=== PATIENT | male | born 1970 | race American Indian/Alaskan Native ===

== ENCOUNTER 2017-10-27 11:25 | Emergency (ER) | payer MEDICAID ==
--- NOTE | 2017-10-27 12:24 | RAD ---
PROCEDURE: CHEST RADIOGRAPH, 1 VIEW HISTORY: r/o infiltrate COMPARISON: None available. FINDINGS: LUNGS: Clear. PLEURA: No pneumothorax or pleural fluid seen. CARDIOVASCULAR: Normal. OSSEOUS STRUCTURES: No significant abnormalities. VISUALIZED UPPER ABDOMEN: Normal. OTHER FINDINGS: None. IMPRESSION: No active disease.
--- NOTE | 2017-10-27 12:25 | ED PDOC ---
Arrival/HPI - General Chief Complaint: Psychiatric Evaluation Time Seen by Provider: 10/27/17 11:26 EM Caveat: Psychotic (history is diffucult to obtain secondary to flood of ideas ) - History of Present Illness Narrative History of Present Illness (Text): 10/27/17 12:13 46 year old male brought in by EMS presents to the Emergency department because patient was acting strange in public, as per triage note. Patient admits to occasional heroin use. History is difficult to obtain secondary to patient's flood of ideas. Patient states he was with his parents but he is unable to provide a history for events prior to being picked up by EMS. Patient denies suicidal ideation, homicidal ideation, and hallucinations. Patient denies any fever, chills, chest pain, shortness of breath, nausea, vomiting, diarrhea, urinary symptoms, back pain, neck pain, headache, dizziness, trauma/injury, or any other complaints. Time/Duration: Prior to Arrival Symptom Onset: Sudden Symptom Course: Unchanged Activities at Onset: Light Context: Walking Past Medical History - Provider Review Nursing Documentation Reviewed: Yes - Infectious Disease Hx of Infectious Diseases: None - Psychiatric Hx Substance Use: No (unknown) Family/Social History - Physician Review Nursing Documentation Reviewed: Yes Family/Social History: Unknown Family HX Smoking Status: Unknown If Ever Smoked Hx Alcohol Use: No (unknown) Hx Substance Use: No (unknown) Allergies/Home Meds Allergies/Adverse Reactions: Allergies No Known Allergies Allergy (Unverified 10/27/17 12:02) Home Medications: Home Meds Medication Instructions Recorded Confirmed No Known Home Med 10/27/17 10/27/17 Review of Systems - Review of Systems Constitutional: absent: Fevers, Night Sweats Respiratory: absent: SOB Cardiovascular: absent: Chest Pain Gastrointestinal: absent: Diarrhea, Nausea, Vomiting Genitourinary Male: absent: Dysuria Musculoskeletal: absent: Back Pain, Neck Pain Neurological: absent: Headache, Dizziness Psychiatric: absent: Suicidal Ideation Physical Exam Vital Signs Reviewed: Yes Vital Signs Temp Pulse Resp BP Pulse Ox 10/27/17 19:04 88 18 114/63 98 10/27/17 12:13 98.3 F 92 H 17 141/89 99 - Systems Exam Head: Present: Atraumatic, Normocephalic Pupils: Present: PERRL Extroacular Muscles: Present: EOMI Conjunctiva: Present: Normal Mouth: Present: Moist Mucous Membranes Neck: Present: Normal Range of Motion Respiratory/Chest: Present: Clear to Auscultation, Good Air Exchange. No: Respiratory Distress, Accessory Muscle Use Cardiovascular: Present: Regular Rate and Rhythm, Normal S1, S2. No: Murmurs Abdomen: No: Tenderness, Distention, Peritoneal Signs Back: Present: Normal Inspection Upper Extremity: Present: Normal Inspection. No: Cyanosis, Edema Lower Extremity: Present: Other (excoriations noted on lower extremities) Neurological: Present: GCS=15, CN II-XII Intact, Speech Normal Skin: Present: Warm, Dry, Normal Color. No: Rashes Psychiatric: Present: Alert, Oriented x 3, Other (flood of ideas, tangential thoughts) Medical Decision Making ED Course and Treatment: 10/27/17 12:28 Impression: 46 year old male brought in to the Emergency department by EMS because he was "acting strange in public." Plan: -- EKG -- Urinalysis -- Labs -- [facility] Crisis Evaluation -- Reassess and disposition Progress Notes: 10/27/17 13:06 Discussed case in detail with patient's PMD, Dr. Noah Stewart. Patient has a history of behavioral issues, possible bipolar disorder. it is unknown if the patient is currently on any medications. Patient has been medically cleared for psychiatric evaluation. - Lab Interpretations Lab Results: 10/27/17 12:15 10/27/17 12:15 Lab Results 10/27/17 12:45: Urine Opiates Screen Positive H, Urine Methadone Screen Negative , Ur Barbiturates Screen Negative, Ur Phencyclidine Scrn Negative, Ur Amphetamines Screen Negative, U Benzodiazepines Scrn Negative, U Oth Cocaine Metabols Negative, U Cannabinoids Screen Negative 10/27/17 12:45: Urine Color Yellow, Urine Appearance Clear, Urine pH 6.0, Ur Specific [place] <= 1.005, Urine Protein Negative, Urine Glucose (UA) Negative, Urine Ketones Negative, Urine Blood Negative, Urine Nitrate Negative, Urine Bilirubin Negative, Urine Urobilinogen 0.2, Ur Leukocyte Esterase Negative 10/27/17 12:15: Alcohol, Quantitative < 10 10/27/17 12:15: Salicylates < 1 L, Acetaminophen < 10.0 L 10/27/17 12:15: Sodium 141, Potassium 4.4, Chloride 102, Carbon Dioxide 28, Anion Gap 16, BUN 16, Creatinine 1.4, Est GFR ( Amer) > 60, Est GFR (Non- Af Amer) 54, Random Glucose 106, Calcium 9.5, Total Bilirubin 0.4, AST 34, ALT 38, Alkaline Phosphatase 45, Total Protein 8.1, Albumin 4.6, Globulin 3.6, Albumin/Globulin Ratio 1.3 10/27/17 12:15: WBC 7.2, RBC 4.04, Hgb 12.6 L, Hct 37.1 L, MCV 91.8, MCH 31.2, MCHC 34.0, RDW 13.3, Plt Count 319, MPV 10.6, Gran % 66.4, Lymph % (Auto) 22.5, [place] % (Auto) 8.7 H, Eos % (Auto) 1.7, Baso % (Auto) 0.7, Gran # 4.76, Lymph # ( Auto) 1.6, [place] # (Auto) 0.6, Eos # (Auto) 0.1, Baso # (Auto) 0.05 - RAD Interpretation Narrative RAD Interpretations (Text): 10/27/2017 12:22:51 PROCEDURE: CHEST RADIOGRAPH, 1 VIEW FINDINGS: LUNGS: Clear. PLEURA: No pneumothorax or pleural fluid seen. CARDIOVASCULAR: Normal. OSSEOUS STRUCTURES: No significant abnormalities. VISUALIZED UPPER ABDOMEN: Normal. OTHER FINDINGS: None. IMPRESSION: No active disease. Radiology Orders: 10/27/17 12:02 CHEST ONE VIEW [RAD] Stat - EKG Interpretation EKG Interpretation (Text): 10/27/17 11:50 EKG: Ordered, reviewed, and independently interpreted the EKG. Rate : 68 BPM Rhythm : NSR Interpretation : No ST-segment elevations or depressions, no T-wave inversions, normal intervals. Interpreted by ED Physician: Yes Type: 12 lead EKG - Medication Orders Current Medication Orders: Discontinued Medications Famotidine (Pepcid) 20 mg PO STAT STA Stop: 10/27/17 22:23 Last Admin: 10/27/17 22:34 Dose: 20 mg Lorazepam (Ativan) 2 mg IM STAT STA PRN Reason: Protocol Stop: 10/27/17 13:23 Last Admin: 10/27/17 19:55 Dose: Not Given Non-Admin Reason: Patient Refused Nicotine (Nicoderm Cq) 1 patch TD STAT STA Stop: 10/27/17 19:30 Last Admin: 10/27/17 19:30 Dose: Not Given Non-Admin Reason: Patient Refused - Transfer of Care Patient signed out to Dr:: Monroe Other: [facility] [place] - Scribe Statement The provider has reviewed the documentation as recorded by the Scribe Roddy Henriquez All medical record entries made by the Scribe were at my direction and personally dictated by me. I have reviewed the chart and agree that the record accurately reflects my personal performance of the history, physical exam, medical decision making, and the department course for this patient. I have also personally directed, reviewed, and agree with the discharge instructions and disposition. Disposition/Present on Arrival - Present on Arrival Any Indicators Present on Arrival: No History of DVT/PE: No History of Uncontrolled Diabetes: No Urinary Catheter: No History of Decub. Ulcer: No History Surgical Site Infection Following: None - Disposition Have Diagnosis and Disposition been Completed?: No Diagnosis: Drug abuse Disposition Time: 23:00 Condition: UNKNOWN Forms: [employer] (Slovak)
[2017-10-27 12:30] VITALS: TEMP 98.3
[2017-10-27 12:39] LABS: BASO # 0.05 K/mm3 (0.0-2.0); BASO % 0.7 % (0.0-3.0); EOS # 0.1 (0.0-0.7); EOS % 1.7 % (1.5-5.0); GRAN # 4.76 (1.4-6.5); GRAN % 66.4 % (50.0-68.0); HEMOGLOBIN 12.6 g/dL (14.0-18.0); LYMPH # 1.6 (1.2-3.4); LYMPH % 22.5 % (22.0-35.0); MEAN CELL VOLUME 91.8 fl (80.0-105.0); MEAN CORPUSCULAR HEMOGLOBIN 31.2 pg (25.0-35.0); MEAN PLATELET VOLUME 10.6 fl (7.0-11.0); MONO # 0.6 (0.1-0.6); MONO % 8.7 % (1.0-6.0); RBC 4.04 10^6/uL (3.5-6.1); RED CELL DISTRIBUTION WIDTH 13.3 % (11.5-14.5); WHITE BLOOD COUNT 7.2 10^3/ul (4.5-11.0)
[2017-10-27 12:49] LABS: ALB/GLOB RATIO 1.3 (1.1-1.8); ALBUMIN 4.6 g/dL (3.0-4.8); ALT/SGPT 38 U/L (7-56); AST/SGOT 34 U/L (17-59); BLOOD UREA NITROGEN 16 mg/dL (7-21); CALCIUM 9.5 mg/dL (8.4-10.5); GFR AFRICAN-AMERICAN > 60; GFR NON-AFRICAN AMERICAN 54
[2017-10-27 12:50] LABS: ACETAMINOPHEN < 10.0 ug/ml (10.0-20.0); SALICYLATE < 1 mg/dL (2.0-20.0)
[2017-10-27 13:00] LABS: URINE BILIRUBIN NEGATIVE (NEGATIVE); URINE BLOOD NEGATIVE (NEGATIVE); URINE GLUCOSE (UA) NEGATIVE (NEGATIVE); URINE LEUKOCYTE ESTERASE NEGATIVE Leu/uL (NEGATIVE); URINE PROTEIN NEGATIVE mg/dL (<30 mg/dL); URINE UROBILINOGEN 0.2 E.U./dL (<1 E.U./dL)
[2017-10-27 13:02] LABS: URINE APPEARANCE CLEAR (CLEAR); URINE COLOR YELLOW (YELLOW)
[2017-10-27 13:43] LABS: PHENCYCLIDINE, UR NEGATIVE (NEGATIVE)
[2017-10-27 13:46] LABS: BARBITURATES, UR NEGATIVE (NEGATIVE); BENZODIAZEPINES, UR NEGATIVE (NEGATIVE); OPIATES, UR POSITIVE (NEGATIVE)
--- NOTE | 2017-10-27 16:30 | CARD ---
APPROVED REPORT EKG Measurement Heart [id number] <Conclusion> Normal sinus rhythm Possible Left atrial enlargement Borderline ECG
[2017-10-27 19:05] VITALS: RESP 18
--- NOTE | 2017-10-27 23:29 | ED PDOC ---
Physical Exam Vital Signs Reviewed: Yes Vital Signs Temp Pulse Resp BP Pulse Ox 10/27/17 19:04 88 18 114/63 98 10/27/17 12:13 98.3 F 92 H 17 141/89 99 Temperature: Afebrile Blood Pressure: Normal Pulse: Tachycardic Respiratory Rate: Normal Appearance: Positive for: Well-Appearing, Non-Toxic, Comfortable Pain Distress: None Mental Status: Positive for: Alert and Oriented X 3 Medical Decision Making ED Course and Treatment: 10/27/17 23:28: Case endorsed to me by Dr. Sandoval. Patient pending [facility] [place], reassessment, and disposition. 10/28/17 01:34: Patient evaluated by [facility] screener. Patient is stable to be discharged home. - Lab Interpretations Lab Results: 10/27/17 12:15 10/27/17 12:15 Lab Results 10/27/17 12:45: Urine Opiates Screen Positive H, Urine Methadone Screen Negative , Ur Barbiturates Screen Negative, Ur Phencyclidine Scrn Negative, Ur Amphetamines Screen Negative, U Benzodiazepines Scrn Negative, U Oth Cocaine Metabols Negative, U Cannabinoids Screen Negative 10/27/17 12:45: Urine Color Yellow, Urine Appearance Clear, Urine pH 6.0, Ur Specific [place] <= 1.005, Urine Protein Negative, Urine Glucose (UA) Negative, Urine Ketones Negative, Urine Blood Negative, Urine Nitrate Negative, Urine Bilirubin Negative, Urine Urobilinogen 0.2, Ur Leukocyte Esterase Negative 10/27/17 12:15: Alcohol, Quantitative < 10 10/27/17 12:15: Salicylates < 1 L, Acetaminophen < 10.0 L 10/27/17 12:15: Sodium 141, Potassium 4.4, Chloride 102, Carbon Dioxide 28, Anion Gap 16, BUN 16, Creatinine 1.4, Est GFR ( Amer) > 60, Est GFR (Non- Af Amer) 54, Random Glucose 106, Calcium 9.5, Total Bilirubin 0.4, AST 34, ALT 38, Alkaline Phosphatase 45, Total Protein 8.1, Albumin 4.6, Globulin 3.6, Albumin/Globulin Ratio 1.3 10/27/17 12:15: WBC 7.2, RBC 4.04, Hgb 12.6 L, Hct 37.1 L, MCV 91.8, MCH 31.2, MCHC 34.0, RDW 13.3, Plt Count 319, MPV 10.6, Gran % 66.4, Lymph % (Auto) 22.5, [place] % (Auto) 8.7 H, Eos % (Auto) 1.7, Baso % (Auto) 0.7, Gran # 4.76, Lymph # ( Auto) 1.6, [place] # (Auto) 0.6, Eos # (Auto) 0.1, Baso # (Auto) 0.05 - RAD Interpretation Radiology Orders: 10/27/17 12:02 CHEST ONE VIEW [RAD] Stat - Medication Orders Current Medication Orders: Discontinued Medications Famotidine (Pepcid) 20 mg PO STAT STA Stop: 10/27/17 22:23 Last Admin: 10/27/17 22:34 Dose: 20 mg Lorazepam (Ativan) 2 mg IM STAT STA PRN Reason: Protocol Stop: 10/27/17 13:23 Last Admin: 10/27/17 19:55 Dose: Not Given Non-Admin Reason: Patient Refused Nicotine (Nicoderm Cq) 1 patch TD STAT STA Stop: 10/27/17 19:30 Last Admin: 10/27/17 19:30 Dose: Not Given Non-Admin Reason: Patient Refused - Scribe Statement The provider has reviewed the documentation as recorded by the Scribe Phyllis Andersen Provider Scribe Attestation: All medical record entries made by the Scribe were at my direction and personally dictated by me. I have reviewed the chart and agree that the record accurately reflects my personal performance of the history, physical exam, medical decision making, and the department course for this patient. I have also personally directed, reviewed, and agree with the discharge instructions and disposition. Disposition/Present on Arrival - Present on Arrival Any Indicators Present on Arrival: No History of DVT/PE: No History of Uncontrolled Diabetes: No Urinary Catheter: No History of Decub. Ulcer: No History Surgical Site Infection Following: None - Disposition Have Diagnosis and Disposition been Completed?: Yes Diagnosis: Drug abuse Disposition: HOME/ ROUTINE Disposition Time: 01:25 Condition: GOOD Discharge Instructions (ExitCare): Drug Abuse and Drug Addiction (DC) Forms: [employer] (Turkmen)
[2017-10-28 03:30] VITALS: BP 130/80; PULSE 92; O2SAT 100
== END 2017-10-28 02:10 | disposition home or self-care (01) ==
LOC: ED 11:25
DX: F19.10 Other psychoactive substance abuse, uncomplicated (principal)

== ENCOUNTER 2017-12-20 21:47 | Inpatient (IN) | payer MEDICAID ==
[2017-12-20 22:01] VITALS: BMI 24.3
[2017-12-20 22:24] VITALS: O2SAT 97
--- NOTE | 2017-12-20 22:27 | ED PDOC ---
Arrival/HPI - General Chief Complaint: Psychiatric Evaluation Time Seen by Provider: 12/20/17 21:59 Historian: Patient - History of Present Illness Narrative History of Present Illness (Text): 12/20/17 22:25 27-year-old male presents as psychiatric transfer for admission to behavioral health floor for depression. Patient states he was feeling depressed. Denies chest pain or shortness of breath. Denies abdominal pain. No nausea or vomiting. Past Medical History - Provider Review Nursing Documentation Reviewed: Yes - Travel History Have you recently traveled outside [place] w/in the past 3 mons?: No - Infectious Disease Hx of Infectious Diseases: None - Cardiac Hx Cardiac Disorders: No Hx Hypertension: No - Pulmonary Hx Tuberculosis: No - Neurological HX Cerebrovascular Accident: No Hx Seizures: No - Hematological/Oncological Hx Cancer: No - Gastrointestinal Hx Gastroesophageal Reflux: Yes - Genitourinary/Gynecological Hx Sexually Transmitted Diseases: Yes (herpes) - Psychiatric Hx Depression: Yes Hx Substance Use: Yes (heroin abuse) - Anesthesia Hx Anesthesia: No Family/Social History - Physician Review Nursing Documentation Reviewed: Yes Family/Social History: Unknown Family HX Smoking Status: Unknown If Ever Smoked Hx Alcohol Use: No (unknown) Hx Substance Use: Yes (heroin abuse) Allergies/Home Meds Allergies/Adverse Reactions: Allergies lactose Allergy (Verified 12/20/17 22:03) DIARRHEA Home Medications: Home Meds Medication Instructions Recorded Confirmed No Known Home Med 10/27/17 10/27/17 Review of Systems - Review of Systems Constitutional: absent: Fatigue, Fevers Respiratory: absent: SOB, Cough Cardiovascular: absent: Chest Pain, Palpitations Gastrointestinal: absent: Abdominal Pain, Nausea, Vomiting Genitourinary Male: absent: Dysuria Musculoskeletal: absent: Arthralgias, Back Pain, Neck Pain Neurological: absent: Headache, Dizziness Endocrine: absent: Diaphoresis Psychiatric: Depression. absent: Anxiety Physical Exam Vital Signs Reviewed: Yes Vital Signs Temp Pulse Resp BP Pulse Ox 12/20/17 22:23 100.3 F H 64 18 150/90 97 Temperature: Afebrile Blood Pressure: Normal Pulse: Regular Respiratory Rate: Normal Appearance: Positive for: Well-Appearing, Non-Toxic, Comfortable Pain Distress: None Mental Status: Positive for: Alert and Oriented X 3 - Systems Exam Head: Present: Atraumatic Mouth: Present: Moist Mucous Membranes Respiratory/Chest: Present: Clear to Auscultation Cardiovascular: Present: Regular Rate and Rhythm Abdomen: No: Tenderness Medical Decision Making ED Course and Treatment: 12/20/17 22:26 47yr old male with depression. transferred to [facility] [place] for admission for depression. pt was medically cleared prior to arrival. cbc; wbc; 4.7 hbg; 10.7 cmp; wnl uds; + cocaine and opiates impression; depression admit to behavioral health floor Disposition/Present on Arrival - Present on Arrival Any Indicators Present on Arrival: No History of DVT/PE: No History of Uncontrolled Diabetes: No Urinary Catheter: No History of Decub. Ulcer: No History Surgical Site Infection Following: None - Disposition Have Diagnosis and Disposition been Completed?: Yes Diagnosis: Depression Disposition: HOSPITALIZED Disposition Time: 22:27 Patient Plan: Admission Condition: FAIR
[2017-12-20] MEDS ORDERED: Magnesium Hydroxide Susp 30 ml UD PO PRN (22:55)
[2017-12-20] MEDS ORDERED: Alum-Mag Hydrox-Simethicone Susp (30 mL) PO PRN (22:55)
--- NOTE | 2017-12-21 01:24 | PCM.BM ---
Treatment Plan Problems - Problems identified on initial assessmt SUICIDAL IDEATION Date Initiated: 12/20/17 Time Initiated: 22:00 Assessment reference: NA Status: Active Priority: 1 INEFFECTIVE COPING Date Initiated: 12/20/17 Time Initiated: 22:00 Assessment reference: NA Status: Active Priority: 2 HOPELESSNESS/HELPLESSNESS Date Initiated: 12/20/17 Time Initiated: 22:00 Assessment reference: NA Status: Active Priority: 3 ALTERED SLEEPING PATTERN Date Initiated: 12/20/17 Time Initiated: 22:00 Assessment reference: NA Priority: 4 Treatment assets and liabiliti Patient Assests: adapts well, cooperative, educated, insightful, self-reliant, ADL independent, physically healthy, negotiates basic needs, cognitively intact Patient Liabilities: physical pain, financial problems, substance abuse - Milieu Protocol Maintain good personal hygiene: every other day Encourage regular showers, every shift Remind patient to perform daily oral care, every shift Assist patient to perform ADL's Maintain personal safety: every shift Educate patient to report safety concerns to staff, every shift Monitor environment for contraband/sharps Medication safety: Monitor for expected outcome, potential side effects: every shift, Assess barriers to learning: every shift, Assess readiness for medication education: every shift Family Contact Family involvement: Family/SO is involved Family contact: Patient agrees to contact Discharge/Continuing Care - Education Needs Education Needs: Patient Medication, Patient Diagnosis/Disease Process, Patient Coping Skills, Patient Pain - Discharge Discharge Criteria: Tolerates medication w/o severe side effects, Free of Suicidal thoughts, Free of agitation, Normal sleep pattern
[2017-12-21 07:01] VITALS: RESP 20
[2017-12-21 08:09] LABS: GLUCOSE,FASTING 88 mg/dL (65-110); HDL CHOLESTEROL 53 mg/dL (29-60)
[2017-12-21 08:20] LABS: LDL CHOLESTEROL 82 mg/dL (0-129)
--- NOTE | 2017-12-21 10:54 | RAD ---
Date of service: 12/21/2017 HISTORY: R/O pneumonia COMPARISON: 10/27/2017 TECHNIQUE: Chest PA and lateral FINDINGS: LUNGS: No active pulmonary disease. PLEURA: No significant pleural effusion identified. No pneumothorax apparent. CARDIOVASCULAR: Normal. OSSEOUS STRUCTURES: No significant abnormalities. VISUALIZED UPPER ABDOMEN: Normal. OTHER FINDINGS: None. IMPRESSION: No active disease.
--- NOTE | 2017-12-21 14:21 | CP.PCM.CON ---
<Conner Wise - Last Filed: 12/21/17 15:01> History of Present Illness - History of Present Illness History of Present Illness: Reason for consult: Open wound on left foot Mr. Renee is a 47 yo male with a PMH of herpes on valcyclovir and doxycycline presents as psychiatric transfer from [facility] for admission to behavioral health for depression and suicidal ideation. Medicine was consulted to evaluate an open wound on his left foot. Patient states that he has had the wound for 3 weeks. It started off as a blister and it became worse overtime. He states that the pain is worse when he is walking and putting pressure on the wound. Patient otherwise denies fever, chills, headaches, nausea, vomiting, chest pain, SOB, or abdominal pain. 12 point review of systems negative. Past medical history: Herpes Medications: Acyclovir and doxycycline, not on any other home medications Surgical history: denies Allergies: lactose intolerance Social history: Smoker- 20 pack years, Heroin- snort, last use was this week, denies ealcohol use Family history: Father had a history of CVA, mother had brain cancer. Review of Systems - Review of Systems Review of Systems: 12 point review of systems negative. Past Patient History - Infectious Disease Hx of Infectious Diseases: None - Past Social History Smoking Status: Unknown If Ever Smoked - CARDIAC Hx Cardiac Disorders: No Hx Hypertension: No - PULMONARY Hx Tuberculosis: No - NEUROLOGICAL HX Cerebrovascular Accident: No Hx Seizures: No - HEENT Hx HEENT Problems: No - RENAL Hx Chronic Kidney Disease: No - ENDOCRINE/METABOLIC Hx Endocrine Disorders: No - HEMATOLOGICAL/ONCOLOGICAL Hx Cancer: No - INTEGUMENTARY Hx Dermatological Problems: Yes Other/Comment: recent Herpes outbreak - MUSCULOSKELETAL/RHEUMATOLOGICAL Hx Musculoskeletal Disorders: No - GASTROINTESTINAL Hx Gastroesophageal Reflux: Yes - GENITOURINARY/GYNECOLOGICAL Hx Sexually Transmitted Disorders: Yes (herpes) - PSYCHIATRIC Hx Depression: Yes Hx Substance Use: Yes (heroin abuse) - SURGICAL HISTORY Hx Surgeries: No - ANESTHESIA Hx Anesthesia: No Meds Allergies/Adverse Reactions: Allergies Allergy/AdvReac Type Severity Reaction Status Date / Time lactose Allergy DIARRHEA Verified 12/21/17 01:07 - Medications Medications: Current Medications Acetaminophen (Tylenol 325mg Tab) 650 mg PO Q4H PRN PRN Reason: Pain, Mild (1-3) Al Hydrox/Mg Hydrox/Simethicone (Maalox Plus 30 Ml) 30 ml PO DAILY PRN PRN Reason: Upset Stomach Fluoxetine HCl (Prozac) 20 mg PO DAILY [facility] Last Admin: 12/21/17 08:01 Dose: 20 mg Hydroxyzine Pamoate (Vistaril) 50 mg PO Q6 PRN; Protocol PRN Reason: Anxiety Lorazepam (Ativan) 2 mg PO Q6H PRN; Protocol PRN Reason: Agitation Lorazepam (Ativan) 2 mg IM Q6H PRN; Protocol PRN Reason: Agitation Magnesium Hydroxide (Milk Of Magnesia) 30 ml PO DAILY PRN PRN Reason: Constipation Mirtazapine (Remeron) 15 mg PO HS ALEKSANDAR Ondansetron HCl (Zofran Odt) 4 mg PO Q8H PRN PRN Reason: Nausea/Vomiting Tramadol HCl (Ultram) 50 mg PO Q8H PRN PRN Reason: Pain, moderate (4-7) Ziprasidone (Geodon Cap) 20 mg PO Q6H PRN; Protocol PRN Reason: Agitation Ziprasidone (Geodon Inj) 20 mg IM Q6H PRN; Protocol PRN Reason: Agitation Physical Exam - Head Exam Head Exam: ATRAUMATIC, NORMAL INSPECTION - Eye Exam Eye Exam: Normal appearance - ENT Exam ENT Exam: Mucous Membranes Moist - Cardiovascular Exam Cardiovascular Exam: REGULAR RHYTHM. absent: Gallop, Rubs, +S1, +S2, Systolic Murmur - GI/Abdominal Exam GI & Abdominal Exam: Normal Bowel Sounds, Soft. absent: Tenderness - Extremities Exam Extremities exam: Negative for: calf tenderness, pedal edema - Neurological Exam Neurological exam: Alert, Normal Gait, Oriented x3 - Psychiatric Exam Psychiatric exam: Flat Affect - Skin Skin Exam: Dry, Normal Color, Warm Additional comments: Open sore that looks superficial on the plantar side below the first metatarsal measuring 3-4 cm. No active bleeding and not purulent. Dark, flat, macular lesions found along legs and arms. Results - Vital Signs Recent Vital Signs: Last Vital Signs Temp 98.2 F 12/21/17 07:00 Pulse 55 L 12/21/17 07:00 Resp 20 12/21/17 07:00 BP 128/90 12/21/17 07:00 Pulse Ox 97 12/20/17 22:53 - Labs Labs: Laboratory Results - last 24 hr 07/12/21/17 12/21/17 06:39 07:30 07:30 Fasting Glucose 88 Triglycerides 72 Cholesterol 170 LDL Cholesterol Direct 82 HDL Cholesterol 53 Procalcitonin < 0.05 L TSH 3rd Generation 1.60 Assessment & Plan - Assessment and Plan (Free Text) Assessment: Mr. Renee is a 47 yo male with PMH of herpes that is admitted to behavioral unit for depression and suicidal ideation. Medicine was consulted to evaluate an open wound on the plantar surface of the left foot below the 1st metatarsal. Plan: Open wound on left foot - need to rule out infectious etiologies vs diabetic ulcer - ID consulted, will monitor without antibiotics for now - procalcitonin <0.05 - wound culture pending - Hemoglobin a1c pending - HIV test pending - Hepatitis panel pending - UA pending Suicidal Ideation and depression - Patient is currently placed on voluntary hold in-patient psych - Management per psych Patient case reviewed with and plan approved by attending physician, Dr. Leach. Thank you for allowing me to participate in the care of the above named patient. <Meliza Leach R - Last Filed: 12/21/17 16:53> Meds - Medications Medications: Current Medications Acetaminophen (Tylenol 325mg Tab) 650 mg PO Q4H PRN PRN Reason: Pain, Mild (1-3) Last Admin: 12/21/17 14:16 Dose: 650 mg Al Hydrox/Mg Hydrox/Simethicone (Maalox Plus 30 Ml) 30 ml PO DAILY PRN PRN Reason: Upset Stomach Fluoxetine HCl (Prozac) 20 mg PO DAILY ALEKSANDAR Last Admin: 12/21/17 08:01 Dose: 20 mg Hydroxyzine Pamoate (Vistaril) 50 mg PO Q6 PRN; Protocol PRN Reason: Anxiety Lorazepam (Ativan) 2 mg PO Q6H PRN; Protocol PRN Reason: Agitation Lorazepam (Ativan) 2 mg IM Q6H PRN; Protocol PRN Reason: Agitation Magnesium Hydroxide (Milk Of Magnesia) 30 ml PO DAILY PRN PRN Reason: Constipation Mirtazapine (Remeron) 15 mg PO HS ALEKSANDAR Ondansetron HCl (Zofran Odt) 4 mg PO Q8H PRN PRN Reason: Nausea/Vomiting Tramadol HCl (Ultram) 50 mg PO Q8H PRN PRN Reason: Pain, moderate (4-7) Ziprasidone (Geodon Cap) 20 mg PO Q6H PRN; Protocol PRN Reason: Agitation Ziprasidone (Geodon Inj) 20 mg IM Q6H PRN; Protocol PRN Reason: Agitation Results - Vital Signs Recent Vital Signs: Last Vital Signs Temp 98.2 F 12/21/17 07:00 Pulse 55 L 12/21/17 07:00 Resp 20 12/21/17 07:00 BP 128/90 12/21/17 07:00 Pulse Ox 97 12/20/17 22:53 - Labs Labs: Laboratory Results - last 24 hr 12/21/17 12/21/17 12/21/17 06:39 07:30 07:30 Fasting Glucose 88 Triglycerides 72 Cholesterol 170 LDL Cholesterol Direct 82 HDL Cholesterol 53 Procalcitonin < 0.05 L TSH 3rd Generation 1.60 Attending/Attestation - Attestation I have personally seen and examined this patient.: Yes I have fully participated in the care of the patient.: Yes I have reviewed all pertinent clinical information: Yes Notes (Text): Patient seen and examined by me at 12:30PM with resident. Case including HPI, physical exam, and physical assessment and plan discussed with resident. Agree with above with following additions/corrections. Patient is a 47-year-old male with past medical history significant for herpes that was admitted to psychiatric unit for making suicidal comments to his friend. We are consulted for low-grade fever and small open wound on plantar surface of left foot. Patient states that the open wound on the plantar side of his left foot has been there for approximately 3 weeks. He states that he gets wounds like this often. States that they started off like a blister and they may turn into wounds and take a long time to heal. Patient has not tried anything for this wound. Patient was transfered from [facility]. Patient states his wound was wrapped at [facility]. Patient states that he did see his primary care doctor as an outpatient for this. Patient states it is painful and is worse with walking. No radiation of the pain. Patient denies any fevers. However patient was found to have low grade temp of 100.3. No chest pain or shortness of breath. No nausea, vomiting, or abdominal pain. No headaches or dizziness. No dysuria. No neck pain or back pain. 14 point review of systems reviewed by me. See above HPI. All other review of systems negative. Physical exam: Gen: Awake and alert sitting up in bed in no acute distress HEENT: Normocephalic atraumatic. Extraocular muscles intact, pupils equal reactive. No scleral icterus. Oropharynx is pink and moist, no pharyngeal erythema or exudate appreciated. Neck is supple. Hearing grossly intact. Ears and nose externally unremarkable. Cardiovascular: Normal rhythm, normal S1-S2. No murmurs, rubs, or gallops appreciated Pulmonary: Normal respiratory effort. No rhonchi, rales or wheezing appreciated. Gastrointestinal: Soft, nontender, nondistended, positive bowel sounds all 4 quadrants, no guarding Musculoskeletal: Normal range of motion all extremities, no calf tenderness, no CVA tenderness Central nervous system: AAO 3. Cranial nerves 2 through 12 grossly intact. 5 out of 5 muscle strength all extremities. Sensation intact. Dermatologic: Skin warm and dry. Positive healed dark scar around wounds on Lasix and arms. Positive proximately 2 cm superficial open wound on plantar surface, no drainage from the area, no erythema, no signs of infection Assessment and plan: Patient is a 47-year-old male with past medical history significant for herpes that was admitted to psychiatric unit for making suicidal comments to his friend. We are consulted for low-grade fever and small open wound on plantar surface of left foot. 1. Left foot wound. Low-grade temperature. ID following, recommendations noted. Patient to be observed off antibiotics for now. Rule out other sources of infection. Rule out UTI. Follow up urinalysis, urine culture, and labs. Chest x- ray with no active disease 2. Suicidal ideation and depression. Care as per primary team. 3. History of herpes. No active outbreak currently. Case was discussed in detail with the patient, psychiatrist, and medical pathology teacher regarding current diagnosis and treatment plan. Thank you for allowing us to participate in the care of your patient. We will follow with you.
--- NOTE | 2017-12-21 14:36 | PCM.PSYCH ---
<Venus Marcus - Last Filed: 12/21/17 14:38> Initial Psychiatric Evaluation - Initial Psychiatric Evaluation Type of Admission: Voluntary Legal Status: Capacity Chief Complaint (in patient's own words): I just keep getting frustrated with everything irene on at home with my dad. I dont really care about myself. Im here to get better for them. Patient's Reaction to Hospitalization: Patient was admitted to the psych unit for evaluation and stabilization after making suicidal statements to a friend. History of Present Illness and Precipitating Events: Nick Renee is a 47 yo male with a hx of depression and heroin use who was sent as a transfer from [facility] for making suicidal statements. The patient lives with his parents, who he takes care of. He reports becoming increasingly frustrated with his father because he as many needs after having a stroke last year. The patient expressed suicidal ideation to his friend who suggested he get help. The patient then brought himself to [facility] ED. According to medical records, in the ED, he endorsed SI and depression. He also admitted to snorting heroin 2 days prior. He states he brought himself to the hospital instead of attempting suicide because he cares about his parents and wants to get better for them. The patient reports being depressed for awhile. He admits to one suicide attempt a long time ago by OD on pills. He reports being hospitalized for weeks after this attempt. He endorses low mood, poor sleep and appetite, and anhedonia. He appears to be future-oriented regarding caring for his parents; however, when asked what his future plans are, he replies, I cant even see tomorrow right now. Patient endorses irritability but denies other symptoms of sayda, including lack of need for sleep, grandiosity, pressured speech. He endorses anxiety regarding hi home life, but denies panic attacks or obsessions or compulsions. He denies paranoia, delusions, and hallucinations. He endorses heroin use intranasally. He denies alcohol or other drugs, including IVDA. Patient denies history of trauma or abuse. Patient was previously hospitalized at [facility]. He also has been in rehab programs. The patient denies taking any psych meds now and does not see an outpatient psychiatrist. He states that the only time he took psych meds was while he was in [facility]. According to medical records, he was seen by PES at [facility] in September for bizarre behavior and heroin use- he was discharged from the ED. He was then seen at [facility] ED in 10/21 after being brought in by police fro bizarre behavior/agitation. Collateral was obtained from his mother at that time, and, according to PES worker, she stated that he makes suicidal statements when using drugs. The patient was seen this morning in tx team. He was dressed in casual clothing with acceptable hygiene. He was cooperative and calm with fair eye contact. He denied AVH, paranoia. He denied HI. Patient denied SI with a plan at this time and was able to contract for safety. Past psych hx: [facility] inpatient IOP 2014 Rehab for opioid abuse PMH: Active herpes infection- genital/anal, ?hands ?cardiomegaly FH: Father- CVA Mother- poor physical health No siblings or children Denies h/o mental illness or suicide attempts SH: Lives with parents Never , no children Heroin intranasal- amount/frequency varies, last used 5 days ago 10 cigarettes/day Denies alcohol use Denies other illicit drug use, including IVDA Current Medications: Active Medications Generic Name Dose Route Start Last Admin Trade Name Freq PRN Reason Stop Dose Admin Acetaminophen 650 mg 12/20/17 22:55 Tylenol 325mg Tab PO Q4H PRN Pain, Mild (1-3) Al Hydrox/Mg Hydrox/Simethicone 30 ml 12/20/17 22:55 Maalox Plus 30 Ml PO DAILY PRN Upset Stomach Fluoxetine HCl 20 mg 12/21/17 08:00 12/21/17 08:01 Prozac PO 20 mg DAILY ALEKSANDAR Administration Hydroxyzine Pamoate 50 mg 12/21/17 00:58 Vistaril PO Q6 PRN Anxiety Protocol Lorazepam 2 mg 12/21/17 00:56 Ativan PO Q6H PRN Agitation Protocol Lorazepam 2 mg 12/21/17 00:57 Ativan IM Q6H PRN Agitation Protocol Magnesium Hydroxide 30 ml 12/20/17 22:55 Milk Of Magnesia PO DAILY PRN Constipation Mirtazapine 15 mg 12/21/17 22:00 Remeron PO HS ALEKSANDAR Ondansetron HCl 4 mg 12/21/17 00:58 Zofran Odt PO Q8H PRN Nausea/Vomiting Tramadol HCl 50 mg 12/21/17 00:58 Ultram PO Q8H PRN Pain, moderate (4-7) Ziprasidone 20 mg 12/21/17 00:56 Geodon Cap PO Q6H PRN Agitation Protocol Ziprasidone 20 mg 12/21/17 00:57 Geodon Inj IM Q6H PRN Agitation Protocol Past Psychiatric History - Past Psychiatric History Pertinent Medical Hx (Current Medical&Sleep Prob, Allergies): Allergies Allergy/AdvReac Type Severity Reaction Status Date / Time lactose Allergy DIARRHEA Verified 12/21/17 01:07 Acyclovir/Hydrocortisone [Xerese 5%-1%] 1 cre TP BID 12/21/17 <Jimena Castillo - Last Filed: 12/21/17 15:18> Initial Psychiatric Evaluation - Initial Psychiatric Evaluation Legal Status: Capacity (patient has capacity to sign consent for treatment) History of Present Illness and Precipitating Events: patient was seen at the treatment team meeting, interviewed, discussed with staff Notes reviewed and agreed with assessment and plan Patient has acceptable personal hygiene, good ADLs. Patient presented to be depressed, flat affect, very slow responses, yes no answers, patient Was making hopeless statements. in regards of the past psychiatric history, patient reported that he overdosed on pills at the age of 18 and was in [facility] psychiatric inpatient unit for a couple of weeks, patient does not remember what medications he was taking, does not rememberif medications make him feel better. patient was seen by infectious disease, patient is NOT required to be on contact isolation Patient reported that he snorts opioids,last time was last Tuesday, patient reports smokes about 10 cigarettes a day, counseling provided, nicotine patch was offered, patient declined that offer Current Medications: Active Medications Generic Name Dose Route Start Last Admin Trade Name Freq PRN Reason Stop Dose Admin Acetaminophen 650 mg 12/20/17 22:55 12/21/17 14:16 Tylenol 325mg Tab PO 650 mg Q4H PRN Administration Pain, Mild (1-3) Al Hydrox/Mg Hydrox/Simethicone 30 ml 12/20/17 22:55 Maalox Plus 30 Ml PO DAILY PRN Upset Stomach Fluoxetine HCl 20 mg 12/21/17 08:00 12/21/17 08:01 Prozac PO 20 mg DAILY ALEKSANDAR Administration Hydroxyzine Pamoate 50 mg 12/21/17 00:58 Vistaril PO Q6 PRN Anxiety Protocol Lorazepam 2 mg 12/21/17 00:56 Ativan PO Q6H PRN Agitation Protocol Lorazepam 2 mg 12/21/17 00:57 Ativan IM Q6H PRN Agitation Protocol Magnesium Hydroxide 30 ml 12/20/17 22:55 Milk Of Magnesia PO DAILY PRN Constipation Mirtazapine 15 mg 12/21/17 22:00 Remeron PO HS ALEKSANDAR Ondansetron HCl 4 mg 12/21/17 00:58 Zofran Odt PO Q8H PRN Nausea/Vomiting Tramadol HCl 50 mg 12/21/17 00:58 Ultram PO Q8H PRN Pain, moderate (4-7) Ziprasidone 20 mg 12/21/17 00:56 Geodon Cap PO Q6H PRN Agitation Protocol Ziprasidone 20 mg 12/21/17 00:57 Geodon Inj IM Q6H PRN Agitation Protocol Past Psychiatric History - Past Psychiatric History Previous Treatment History: Inpatient Prior Professional Help: See HPI Prior Psychiatric Treatment: see HPI At what hospital: see HPI Duration: see HPI Nature of Treatment: see HPI Explanation of prior treatment: see HPI History of Abuse: see HPI History of ETOH/Drug Use: see HPI History of Family Illness: see HPI Pertinent Medical Hx (Current Medical&Sleep Prob, Allergies): Allergies Allergy/AdvReac Type Severity Reaction Status Date / Time lactose Allergy DIARRHEA Verified 12/21/17 01:07 Acyclovir/Hydrocortisone [Xerese 5%-1%] 1 cre TP BID 12/21/17 Review of Systems - Review of Systems Systems not reviewed;Unavailable: Acuity of Condition - EENT Eyes: As Per HPI Ears: As Per HPI Nose/Mouth/Throat: As Per HPI - Cardiovascular Cardiovascular: As Per HPI - Respiratory Respiratory: As Per HPI - Gastrointestinal Gastrointestinal: As Per HPI - Genitourinary Genitourinary: As Per HPI - Reproductive: Male Reproductive:Male: As Per HPI - Musculoskeletal Musculoskeletal: As Par HPI - Integumentary Integumentary: As Per HPI - Neurological Neurological: As Per HPI - Psychiatric Psychiatric: As Per HPI - Endocrine Endocrine: As Per HPI - Hematologic/Lymphatic Hematologic: As Per HPI Mental Status Examination - Personal Presentation Personal Presentation: Looks older than stated age - Affect Affect: Flat - Motor Activity Motor Activity: Psychomotor Retardation - Reliability in Providing Information Reliability in Providing Information: Fair - Speech Speech: Organized - Mood Mood: Depressed - Formal Thought Process Formal Thought Process: No Impairment, Paranoia - Hallucinations/Delusions Delusions: Persecution - Obsessions/Compulsions Obsessions: None Compulsions: None - Cognitive Functions Orientation: Person, Place, Situation Sensorium: Alert Abstract Thinking: [place] Estimate of Intelligence: Below average Judgement: Intact, as evidence by: Insight regarding need for hospitalization - Risk Risk: Diminished functioning - Strength & Assets Inventory Strength & Assets Inventory: Cooperative - Limitations Limitations: Other (severe and as of the symptoms) DSM 5 DX - DSM 5 DSM 5 Diagnosis: rule out major depressive disorder Rule out opioid abuse Rule out substance-induced mood disorder - Recommended/Plan of Treatment Treatment Recommendations and Plan of Treatment: Milieu/structure/supportive therapy Medical consult appreciated, see medical team note for more detailed info SW consultation for discharge plan and social issues Med management Prozac 20 mg daily for depression and anxiety Remeron 15 mg at the nighttime for insomnia Symptomatic treatment for possible withdrawal symptoms but patient reported that he started opioids last Tuesday at present moment patient denied any withdrawal symptoms Family involvement Follow up on labs Will monitor closely Pt was educated about risk/benefits and alternatives of medications, coping strategies (safety plan, suicide prevention), relapse prevention, importance of follow up with psychiatrist and therapist, stay away from drugs/alcohol/smoking Projected ELOS: 7 days Prognosis: guarded Discharge Plan and Discharge Criteria: Pt will be not depressed or manic, will be more hopeful, will be not psychotic or anxious, will be not having thoughts of harming self or others, will be tolerating medications well, will not have major side effects, will be able to function, will not pose threat to self or others. - Smoking Cessation Smoking Cessation Initiated: No Reason for not providing: refused
--- NOTE | 2017-12-21 14:57 | CP.PCM.CON ---
History of Present Illness - History of Present Illness History of Present Illness: 47 year old male with PMH of GERD, history of HSV infection, history of heroin abuse came in to [facility] [place] and is now admitted in the Psych unit for depression. The patient was noted to have low grade temperatures on admission and Infectious Diseases consult is requested to further evaluate and manage.The patient currently dose not have fever or chills, no cough or rhinorrhea, no sore throat , no abdominal pain, no dysuria, no penile discharge, no abdominal pain, no diarrhea, no SOB. Review of Systems - Review of Systems All systems: reviewed and no additional remarkable complaints except (as per HPI ) Past Patient History - Infectious Disease Hx of Infectious Diseases: None - Past Social History Smoking Status: Unknown If Ever Smoked - CARDIAC Hx Cardiac Disorders: No Hx Hypertension: No - PULMONARY Hx Tuberculosis: No - NEUROLOGICAL HX Cerebrovascular Accident: No Hx Seizures: No - HEENT Hx HEENT Problems: No - RENAL Hx Chronic Kidney Disease: No - ENDOCRINE/METABOLIC Hx Endocrine Disorders: No - HEMATOLOGICAL/ONCOLOGICAL Hx Cancer: No - INTEGUMENTARY Hx Dermatological Problems: Yes Other/Comment: recent Herpes outbreak - MUSCULOSKELETAL/RHEUMATOLOGICAL Hx Musculoskeletal Disorders: No - GASTROINTESTINAL Hx Gastroesophageal Reflux: Yes - GENITOURINARY/GYNECOLOGICAL Hx Sexually Transmitted Disorders: Yes (herpes) - PSYCHIATRIC Hx Depression: Yes Hx Substance Use: Yes (heroin abuse) - SURGICAL HISTORY Hx Surgeries: No - ANESTHESIA Hx Anesthesia: No Meds Allergies/Adverse Reactions: Allergies Allergy/AdvReac Type Severity Reaction Status Date / Time lactose Allergy DIARRHEA Verified 12/21/17 01:07 - Medications Medications: Current Medications Acetaminophen (Tylenol 325mg Tab) 650 mg PO Q4H PRN PRN Reason: Pain, Mild (1-3) Al Hydrox/Mg Hydrox/Simethicone (Maalox Plus 30 Ml) 30 ml PO DAILY PRN PRN Reason: Upset Stomach Fluoxetine HCl (Prozac) 20 mg PO DAILY ALEKSANDAR Hydroxyzine Pamoate (Vistaril) 50 mg PO Q6 PRN; Protocol PRN Reason: Anxiety Lorazepam (Ativan) 2 mg PO Q6H PRN; Protocol PRN Reason: Agitation Lorazepam (Ativan) 2 mg IM Q6H PRN; Protocol PRN Reason: Agitation Magnesium Hydroxide (Milk Of Magnesia) 30 ml PO DAILY PRN PRN Reason: Constipation Ondansetron HCl (Zofran Odt) 4 mg PO Q8H PRN PRN Reason: Nausea/Vomiting Tramadol HCl (Ultram) 50 mg PO Q8H PRN PRN Reason: Pain, moderate (4-7) Ziprasidone (Geodon Cap) 20 mg PO Q6H PRN; Protocol PRN Reason: Agitation Ziprasidone (Geodon Inj) 20 mg IM Q6H PRN; Protocol PRN Reason: Agitation Physical Exam - Constitutional Appears: Chronically Ill - Head Exam Head Exam: NORMAL INSPECTION - Respiratory Exam Respiratory Exam: Decreased Breath Sounds - Cardiovascular Exam Cardiovascular Exam: +S1, +S2 - GI/Abdominal Exam GI & Abdominal Exam: Soft. absent: Tenderness Results - Vital Signs Recent Vital Signs: Last Vital Signs Temp 100.3 F H 12/20/17 22:53 Pulse 64 12/20/17 22:53 Resp 18 12/20/17 22:53 BP 150/90 12/20/17 22:53 Pulse Ox 97 12/20/17 22:53 Assessment & Plan - Assessment and Plan (Free Text) Plan: Assessment Low grade fever R/O UTI, R/O upper respiratory infection depression GERD history of HSV infection history of heroin abuse Plan will monitor off antibiotics - follow up blood cx, urine cx, urinalysis, CBC, PCT, CXR discussed with Dr. Hess
[2017-12-21 16:39] LABS: HEPATITIS B SURFACE AG Negative (NEGATIVE)
[2017-12-21 16:45] LABS: HEPATITIS A IGM NEGATIVE (NEGATIVE); HEPATITIS B CORE AB NEGATIVE (NEGATIVE)
[2017-12-21 16:56] LABS: HEPATITIS C ANTIBODY NEGATIVE (NEGATIVE)
[2017-12-22 07:03] VITALS: BP 124/92; PULSE 57; TEMP 97.8
--- NOTE | 2017-12-22 12:31 | PCM.PYCHPN ---
Psychiatric Progress Note - Psychiatric Progress Note Patient seen today, length of contact: 30 minutes Patient Chief Complaint: I want to get out of here. Either you let me go home or call the police. Medication Change: Yes Medical Record Reviewed: Yes Consults ordered or reviewed: medicine Mental Status Examination - Cognitive Function Orientation: Person, Place, Situation - Mood Mood: Depressed - Affect Affect: Flat - Formal Thought Process Formal Thought Process: No Impairment, Paranoia
--- NOTE | 2017-12-22 15:38 | CP.PCM.PN ---
Subjective - Date & Time of Evaluation Date of Evaluation: 12/22/17 Time of Evaluation: 11:30 - Subjective Subjective: Comfortable, no fevers, no dysuria, no nausea, no abdominal pain, no cough. Objective - Vital Signs/Intake and Output Vital Signs (last 24 hours): Temp Pulse Resp BP Pulse Ox 97.8 F 57 L 20 124/92 H 97 12/22/17 07:01 12/22/17 07:01 12/22/17 07:01 12/22/17 07:01 12/20/17 22:53 - Medications Medications: Current Medications Acetaminophen (Tylenol 325mg Tab) 650 mg PO Q4H PRN PRN Reason: Pain, Mild (1-3) Last Admin: 12/21/17 21:04 Dose: 650 mg Al Hydrox/Mg Hydrox/Simethicone (Maalox Plus 30 Ml) 30 ml PO DAILY PRN PRN Reason: Upset Stomach Fluoxetine HCl (Prozac) 20 mg PO DAILY [facility] Last Admin: 12/21/17 08:01 Dose: 20 mg Hydroxyzine Pamoate (Vistaril) 50 mg PO Q6 PRN; Protocol PRN Reason: Anxiety Lorazepam (Ativan) 2 mg PO Q6H PRN; Protocol PRN Reason: Agitation Lorazepam (Ativan) 2 mg IM Q6H PRN; Protocol PRN Reason: Agitation Magnesium Hydroxide (Milk Of Magnesia) 30 ml PO DAILY PRN PRN Reason: Constipation Mirtazapine (Remeron) 15 mg PO [facility] Last Admin: 12/21/17 21:05 Dose: 15 mg Ondansetron HCl (Zofran Odt) 4 mg PO Q8H PRN PRN Reason: Nausea/Vomiting Tramadol HCl (Ultram) 50 mg PO Q8H PRN PRN Reason: Pain, moderate (4-7) Last Admin: 12/21/17 23:40 Dose: 50 mg Ziprasidone (Geodon Cap) 20 mg PO Q6H PRN; Protocol PRN Reason: Agitation Ziprasidone (Geodon Inj) 20 mg IM Q6H PRN; Protocol PRN Reason: Agitation - Constitutional Appears: Non-toxic, Chronically Ill - Head Exam Head Exam: NORMAL INSPECTION - Cardiovascular Exam Cardiovascular Exam: +S1, +S2 - GI/Abdominal Exam GI & Abdominal Exam: Soft. absent: Tenderness Assessment and Plan - Assessment and Plan (Free Text) Plan: Assessment Low grade fever R/O upper respiratory infection (viral), with symptoms resolved depression GERD history of HSV infection history of heroin abuse Plan will continue to monitor off antibiotics - cultures are negative, PCT is <0.[address] Hess
--- NOTE | 2017-12-22 15:47 | PCM.PYCHDC ---
Discharge Summary - Discharge Note Psychiatric History (includes Medical, Family, Personal Hx): see HPI Laboratory Data: Abnormal Lab Results 12/21/17 12/21/17 12/21/17 07:30 13:10 13:10 Hemoglobin A1c 5.1 RPR Nonreactive Hepatitis A IgM Ab Negative Hep Bs Antigen Negative Hep B Core IgM Ab Negative Hepatitis C Antibody Negative HIV 1&2 Antibody Screen 12/21/17 13:10 Hemoglobin A1c RPR Hepatitis A IgM Ab Hep Bs Antigen Hep B Core IgM Ab Hepatitis C Antibody HIV 1&2 Antibody Screen Negative Consultations:: List each consultation separately and include: 1. Reason for request. 2. Findings. 3. Follow-up Summary of Hospital Course include:: 1. Description of specific treatment plan utilized for patients during their course of treatmen. 2. Summarize the time- course for resolution of acute symptoms and/or regressed behaviors. 3. Describe issues identified and worked on during hospitalization. 4. Describe medication utilized. 5. Describe medical problems identified and treated. 6. Reassessment of suicide risk Summary of Hospital Course: Nick Renee is a 47 yo male with a hx of depression and heroin use who was [place] as a [place] [facility] [place] statements, pt was under voluntary status, pt was found to be not committable in [facility]. The patient lives with his parents, who he takes care of. He reports becoming increasingly frustrated with his father because he as many needs after having a stroke last year. The patient expressed suicidal ideation to his friend who suggested he get help "I just told him the way I always feel and he suggested me to go to the hospital". The patient then brought himself to [facility] ED. According to medical records, in the ED, he endorsed SI and depression. He also admitted to snorting heroin 2 days prior. He states he brought himself to the hospital instead of attempting suicide because he cares about his parents and wants to get better for them. The patient reports being depressed for awhile. He admits to one suicide attempt a long time ago by OD on pills. He reports being hospitalized for weeks after this attempt. He endorses low mood, poor sleep and appetite, and anhedonia. He appears to be future-oriented regarding caring for his parents; however, when asked what his future plans are, he replies, I cant even see tomorrow right now. Patient endorses irritability but denies other symptoms of sayda, including lack of need for sleep, grandiosity, pressured speech. He endorses anxiety regarding hi home life, but denies panic attacks or obsessions or compulsions. He denies paranoia, delusions, and hallucinations. He endorses heroin use intranasally. He denies alcohol or other drugs, including IVDA. Patient denies history of trauma or abuse. Patient was previously hospitalized at [facility]. He also has been in rehab programs. The patient denies taking any psych meds now and does not see an outpatient psychiatrist. He states that the only time he took psych meds was while he was in [facility]. According to medical records, he was seen by P[facility] at [facility] in September for bizarre behavior and heroin use- he was discharged from the ED. He was then seen at [facility] in 10/21 after being brought in by police fro bizarre behavior/agitation. Collateral was obtained from his mother at that time, and, according to PES worker, she stated that he makes suicidal statements when using drugs. during the initial assessment pt denied AVH, paranoia. He denied HI. Patient denied SI with a plan at this time and was able to contract for safety. Past psych hx: [facility] inpatient [place] 2014 Rehab for opioid abuse PMH: Active herpes infection- genital/anal, ?hands ?cardiomegaly FH: Father- CVA Mother- poor physical health No siblings or children Denies h/o mental illness or suicide attempts SH: Lives with parents Never , no children Heroin intranasal- amount/frequency varies, last used 5 days ago 10 cigarettes/day Denies alcohol use Denies other illicit drug use, including IVDA pt submitted 48hr notice today, requesting discharge, pt said that the treatment what he gets here "I could have it at home". pt said "I am not suicidal", when was asked what have changed "I do not feel suicidal now, this is the way I feel, that is my explanation". Patient presented to be depressed, flat affect. pt obviously might benefit from further evaluation and stabilization. pt was seen by medical, ID team. as per staff pt takes meds, but not participating in unit activities, has good appetite and sleep. no agitation no aggression. pt has future oriented plans "I want to go for out patient program at [facility]". At the time of the discharge pt denied been depressed, denied thoughts of harming self or others, denied psychotic symptoms, and pt does not appeared to be psychotic, denied been anxious, pt is not in imminent danger to self or others, will be following up at [facility], information about follow up appointment, time and address provided to the pt, it is patient responsibility to follow up with outpatient clinic, PMD as well as specialists (see note for more detailed information). In case pt will need to obtain results of studies pending at discharge pt was provided with contact information of Psychiatric Inpatient unit [phone] as well as Medical Record Department [phone]. Nicotine patch was offered, pt declined Naltrexone treatment not indicated at this time because pt is opioid user Counseling about smoking and alcohol cessation provided AA meetings as well as smoking cessation treatment program information was provided by the no meds provided Pt was educated about safety plan in case of worsening of symptoms or in case of suicidal or homicidal ideation call 911 or go to the nearest ER, also was educated to take meds as prescribed and stay away from drugs, pt verbalized understanding. pt was d/c AMA, pt has a capacity to sign AMA. - Diagnosis (1) Mood disorder Current Visit: Yes Status: Chronic Priority: Medium (2) Opioid abuse Current Visit: Yes Status: Chronic Priority: Medium - Final Diagnosis (DSM 5) Condition upon Discharge: FAIR Disposition: AGAINST MEDICAL ADVICE Follow-up Treatment Plan: At the time of the discharge pt denied been depressed, denied thoughts of harming self or others, denied psychotic symptoms, and pt does not appeared to be psychotic, denied been anxious, pt is not in imminent danger to self or others, will be following up at [facility], information about follow up appointment, time and address provided to the pt, it is patient responsibility to follow up with outpatient clinic, PMD as well as specialists (see note for more detailed information). In case pt will need to obtain results of studies pending at discharge pt was provided with contact information of Psychiatric Inpatient unit [phone] as well as Medical Record Department [phone]. Nicotine patch was offered, pt declined Naltrexone treatment not indicated at this time because pt is opioid user Counseling about smoking and alcohol cessation provided AA meetings as well as smoking cessation treatment program information was provided by the no meds provided Pt was educated about safety plan in case of worsening of symptoms or in case of suicidal or homicidal ideation call 911 or go to the nearest ER, also was educated to take meds as prescribed and stay away from drugs, pt verbalized understanding. pt was d/c AMA, pt has a capacity to sign AMA. - Smoking Cessation Smoking Cessation Medication prescribed: No Reason for not providing: pt refused - Antipsychotic Medications Pt discharged on 2 or more routine antipsychotic medications: No
--- NOTE | 2017-12-22 17:13 | CP.PCM.PN ---
<Scott Leach - Last Filed: 12/22/17 16:57> Subjective - Date & Time of Evaluation Date of Evaluation: 12/22/17 Time of Evaluation: 12:00 - Subjective Subjective: Subjective: Patient seen and examined at bedside. Resting comfortably in bed. No acute overnight events. Patient states left foot pain has improved relative to baseline. Offers no new complaints at this time. Denies fever, chills, chest pain, shortness of breath, abdominal pain, nausea, vomiting, diarrhea, constipation, and urinary symptoms. 12-point review of systems negative except as indicated in the HPI Physical Examination: - Head Exam Head Exam: ATRAUMATIC, NORMAL INSPECTION - Eye Exam Eye Exam: Normal appearance - ENT Exam ENT Exam: Mucous Membranes Moist - Cardiovascular Exam Cardiovascular Exam: REGULAR RHYTHM. bradycardic, absent: Gallop, Rubs, +S1, +S2 , Systolic Murmur - GI/Abdominal Exam GI & Abdominal Exam: Normal Bowel Sounds, Soft. absent: Tenderness - Extremities Exam Extremities exam: Negative for: calf tenderness, pedal edema - Neurological Exam Neurological exam: Alert, Oriented x3 - Psychiatric Exam Psychiatric exam: Flat Affect - Skin Skin Exam: Dry, warm, wound of left foot superficial on the plantar side below the first metatarsal measuring 3-4 cm. No active bleeding and not purulent. Dark , flat, macular lesions found along legs and arms. Assessment and Plan: Patient is a 47 year old male with PMHx of HSV infection, GERD, and heroin abuse who was admitted to behavioral unit for depression and suicidal ideation. Medicine was consulted to evaluate an open wound on the plantar surface of the left foot below the 1st metatarsal. Open wound on left foot - ID consulted, will monitor without antibiotics for now - procalcitonin <0.05, no leukocytosis, no fever - blood culture- no growth after 24 hours - wound culture pending - Hemoglobin a1c 5.1 - HIV test negative - Hepatitis panel negative - RPR negative - UA- no signs of UTI - wound care consulted Suicidal Ideation and depression - Management per psych Thank you for the opportunity to participate in the care of this patient. Medicine team will sign off at this time. Please reconsult if needed. Patient seen with, case reviewed by, and plan approved by attending physician, Dr. Leach. Objective - Vital Signs/Intake and Output Vital Signs (last 24 hours): Temp Pulse Resp BP Pulse Ox 97.8 F 57 L 20 124/92 H 97 12/22/17 07:01 12/22/17 07:01 12/22/17 07:01 12/22/17 07:01 12/20/17 22:53 <Meliza Leach R - Last Filed: 12/22/17 17:55> Objective - Vital Signs/Intake and Output Vital Signs (last 24 hours): Temp Pulse Resp BP Pulse Ox 97.8 F 57 L 20 124/92 H 97 12/22/17 07:01 12/22/17 07:01 12/22/17 07:01 12/22/17 07:01 12/20/17 22:53 Attending/Attestation - Attestation I have personally seen and examined this patient.: Yes I have fully participated in the care of the patient.: Yes I have reviewed all pertinent clinical information, including history, physical exam and plan: Yes Notes (Text): Patient seen and examined by me at 12:00PM with resident. Case including HPI, physical exam, and physical assessment and plan discussed with resident. Agree with above with following additions/corrections. Patient states he is feeling ok. Still complains of pain at his left foot wound site. No fevers or chills. No chest pain or shortness of breath. No nausea, vomiting, or abdominal pain. No headaches or dizziness. No dysuria. No neck pain or back pain. Physical exam: Gen: Awake and alert lying in bed in no acute distress HEENT: Normocephalic atraumatic. Extraocular muscles intact, pupils equal reactive. No scleral icterus. Oropharynx is pink and moist, no pharyngeal erythema or exudate appreciated. Neck is supple. Cardiovascular: Normal rhythm, normal S1-S2. No murmurs, rubs, or gallops appreciated Pulmonary: Normal respiratory effort. No rhonchi, rales or wheezing appreciated. Gastrointestinal: Soft, nontender, nondistended, positive bowel sounds all 4 quadrants, no guarding Musculoskeletal: Normal range of motion all extremities, no calf tenderness, no CVA tenderness Central nervous system: AAO 3. Dermatologic: Skin warm and dry. Positive healed dark scars around wounds on legs and arms. Positive proximately 2 cm healing superficial open wound on plantar surface, no drainage from the area, no erythema, no signs of infection Assessment and plan: Patient is a 47-year-old male with past medical history significant for herpes that was admitted to psychiatric unit for making suicidal comments to his friend. We are consulted for low-grade fever and small open wound on plantar surface of left foot. 1. Left foot wound. Low-grade temperature. ID following, recommendations noted. Patient to be observed off antibiotics. Patient afebrile. Chest x-ray with no active disease. No labs available. NO urinalysis available. 2. Suicidal ideation and depression. Care as per primary team. 3. History of herpes. No active outbreak currently. Case was discussed in detail with the patient and nuclear medical tech regarding current diagnosis and treatment plan. Patient is doing better. We will sign off. Please reconsult if needed.
== END 2017-12-22 12:45 | disposition left against medical advice (07) | DRG 426 ==
LOC: ED 21:47 → ERH 22:17 → PSYC 22:56
PROVIDERS: ADMIT Psychiatry & Neurology Psychiatry; ATTEND Psychiatry & Neurology Psychiatry
PROC: GZ3ZZZZ Medication Management (ICD-10-PCS; principal; 2017-12-21)
DX: F32.9 Major depressive disorder, single episode, unspecified (principal); F11.10 Opioid abuse, uncomplicated; R45.851 Suicidal ideations; B00.9 Herpesviral infection, unspecified; K21.9 Gastro-esophageal reflux disease without esophagitis; F17.210 Nicotine dependence, cigarettes, uncomplicated; Z82.3 Family history of stroke

== ENCOUNTER 2018-03-13 00:17 | Inpatient (IN) | payer MEDICAID ==
[2018-03-13 00:26] VITALS: BMI 25.1
--- NOTE | 2018-03-13 00:42 | ED PDOC ---
Arrival/HPI - General Historian: Patient - History of Present Illness Narrative History of Present Illness (Text): 03/13/18 00:37 47yo male with pmhx of GERD, substance abuse bib EMS with complaint of left lower leg redness, pain and purulent discharge. States he have had these s ymptoms for weeks, but it became more painful over the past 4days. Report difficult with ambulation secondary to pain from the leg. He denies fever, chills, nausea, vomiting, diarrhea, chest pain, any other complaint. <Chan Douglas - Last Filed: 03/13/18 01:53> <Vj Edwards - Last Filed: 03/13/18 23:22> - General Chief Complaint: Lower Extremity Problem/Injury Time Seen by Provider: 03/13/18 00:21 Past Medical History - Provider Review Nursing Documentation Reviewed: Yes - Infectious Disease Hx of Infectious Diseases: None - Cardiac Hx Cardiac Disorders: No Hx Hypertension: No - Pulmonary Hx Tuberculosis: No - Neurological HX Cerebrovascular Accident: No Hx Seizures: No - HEENT Hx HEENT Disorder: No - Renal Hx Renal Disorder: No - Endocrine/Metabolic Hx Endocrine Disorders: No - Hematological/Oncological Hx Cancer: No - Integumentary Hx Dermatological Disorder: Yes Other/Comment: recent Herpes outbreak - Musculoskeletal/Rheumatological Hx Musculoskeletal Disorders: No - Gastrointestinal Hx Gastroesophageal Reflux: Yes - Genitourinary/Gynecological Hx Sexually Transmitted Diseases: Yes (herpes) - Psychiatric Hx Depression: Yes Hx Substance Use: Yes (heroin abuse) - Anesthesia Hx Anesthesia: No <Chan Douglas - Last Filed: 03/13/18 01:53> Family/Social History - Physician Review Nursing Documentation Reviewed: Yes Family/Social History: Unknown Family HX Smoking Status: Unknown If Ever Smoked Hx Alcohol Use: No (unknown) Hx Substance Use: Yes (heroin abuse) <Chan Douglas - Last Filed: 03/13/18 01:53> Allergies/Home Meds <Chan Douglas A - Last Filed: 03/13/18 01:53> <Vj Edwards - Last Filed: 03/13/18 23:22> Allergies/Adverse Reactions: Allergies lactose Allergy (Verified 03/13/18 00:29) DIARRHEA Home Medications: Home Meds Medication Instructions Recorded Confirmed Acyclovir/Hydrocortisone [Xerese 1 cre TP BID 12/21/17 12/21/17 5%-1%] Review of Systems - Physician Review All systems were reviewed & negative as marked: Yes - Review of Systems Constitutional: Normal Eyes: Normal ENT: Normal Respiratory: Normal Cardiovascular: Normal Gastrointestinal: Normal Genitourinary Male: Normal Musculoskeletal: Arthralgias (Left leg pain/redness) Skin: Normal Neurological: Normal Endocrine: Normal Hemo/Lymphatic: Normal Psychiatric: Normal <Chan ewing A - Last Filed: 03/13/18 01:53> Physical Exam Vital Signs Reviewed: Yes Temperature: Afebrile Blood Pressure: Normal Pulse: Regular Respiratory Rate: Normal Appearance: Positive for: Well-Appearing, Non-Toxic, Comfortable Pain Distress: None Mental Status: Positive for: Alert and Oriented X 3 - Systems Exam Head: Present: Atraumatic, Normocephalic Pupils: Present: PERRL Extroacular Muscles: Present: EOMI Conjunctiva: Present: Normal Mouth: Present: Moist Mucous Membranes Neck: Present: Normal Range of Motion Respiratory/Chest: Present: Clear to Auscultation, Good Air Exchange. No: Respiratory Distress, Accessory Muscle Use Cardiovascular: Present: Regular Rate and Rhythm, Normal S1, S2. No: Murmurs Abdomen: No: Tenderness, Distention, Peritoneal Signs Back: Present: Normal Inspection Upper Extremity: Present: Normal Inspection. No: Cyanosis, Edema Lower Extremity: Present: NORMAL PULSES, Tenderness (Left lower mid to distal left leg), Erythema (Left lower leg anteriorlly with central nonfluctuant nodule/abscess approximately 5 x 5 noted), Temperature Abnormalties (Warm to touch). No: Edema, CALF TENDERNESS Neurological: Present: GCS=15, CN II-XII Intact, Speech Normal Skin: Present: Warm, Dry, Normal Color. No: Rashes Psychiatric: Present: Alert, Oriented x 3, Normal Insight, Normal Concentration <Chan Douglas A - Last Filed: 03/13/18 01:53> Vital Signs Pulse Resp BP Pulse Ox 03/13/18 02:00 100 H 18 144/90 96 <Vj Edwards - Last Filed: 03/13/18 23:22> Medical Decision Making ED Course and Treatment: 03/13/18 01:43 47yo male bib EMS for left lower leg infection x days. Cellulitis of LLE noted. Labs was ordered to evaluation for possible oupt oral abx Labs blood culture Left tib/fib xray CXR Leukocytosis noted. Vanco and Rocephin ordered. Pt is a drug user. He will be admitted for IV abx Case was DW Dr. Horvath and pt was admitted to they service. <Chan Douglas A - Last Filed: 03/13/18 01:53> - Lab Interpretations Lab Results: 03/13/18 00:43 03/13/18 00:43 Lab Results 03/13/18 00:43: Sodium 140, Potassium 4.5, Chloride 101, Carbon Dioxide 30, Anion Gap 14, BUN 17, Creatinine 1.0, Est GFR ( Amer) > 60, Est GFR (Non- Af Amer) > 60, Random Glucose 84, Calcium 9.0, Total Bilirubin 0.6, AST 48, ALT 39, Alkaline Phosphatase 60, Total Protein 7.9, Albumin 3.7, Globulin 4.2, Albumin/Globulin Ratio 0.9 L 03/13/18 00:43: PT 13.2 H, INR 1.15, APTT 32.5 03/13/18 00:43: WBC 18.0 H D, RBC 3.14 L, Hgb 9.4 L D, Hct 28.3 L, MCV 90.1, MCH 29.9, MCHC 33.2, RDW 13.0, Plt Count 480 H, MPV 9.4, Gran % 85.3 H, Lymph % (Auto) 7.8 L, [place] % (Auto) 5.7, Eos % (Auto) 0.9 L, Baso % (Auto) 0.3, Gran # 15.36 H, Lymph # (Auto) 1.4, [place] # (Auto) 1.0 H, Eos # (Auto) 0.2, Baso # (Auto) 0.05 - RAD Interpretation Radiology Orders: 03/13/18 01:21 TIBIA FIBULA LEFT [RAD] Stat - Medication Orders Current Medication Orders: Dextrose/Sodium Chloride (Dextrose 5%/0.9% Ns 1000 Ml) 1,000 mls @ 100 mls/hr IV .Q10H ALEKSANDAR Last Admin: 03/13/18 22:01 Dose: Not Given Non-Admin Reason: PT REFUSING IVF AT THIS TIME Vancomycin HCl (Vancomycin 1gm) 1 gm in 250 mls @ 167 mls/hr IVPB Q12 ALEKSANDAR; Protocol Last Admin: 03/13/18 21:59 Dose: Not Given Non-Admin Reason: PT REFUSING ALL ABX Piperacillin Sod/Tazobactam Sod (Zosyn 3.375 In Ns 100ml) 100 mls @ 25 mls/hr IVPB Q8 ALEKSANDAR; Protocol Stop: 03/20/18 14:01 Last Admin: 03/13/18 22:00 Dose: Not Given Non-Admin Reason: PT REFUSING ALL ABX Ibuprofen (Motrin Tab) 600 mg PO Q6H PRN PRN Reason: Pain, moderate (4-7) Discontinued Medications Ceftriaxone Sodium (Rocephin 1 Gram Ivpb) 1 gm in 100 mls @ 200 mls/hr IVPB STAT STA; Protocol Stop: 03/13/18 01:54 Last Admin: 03/13/18 02:13 Dose: 200 mls/hr eMAR Start Stop Document 03/13/18 02:13 SS (Rec: 03/13/18 02:13 SS [id number]) Intravenous Solution Start Date 03/13/18 Start Time 02:13 End Date 03/13/18 End time 02:43 Total Infusion Time 30 Vancomycin HCl (Vancomycin 1gm) 1 gm in 250 mls @ 167 mls/hr IVPB STAT STA; Protocol Stop: 03/13/18 02:54 Last Admin: 03/13/18 03:47 Dose: 167 mls/hr eMAR Start Stop Document 03/13/18 03:47 SS (Rec: 03/13/18 03:47 SS [id number]) Intravenous Solution Start Date 03/13/18 Start Time 03:28 End Date 03/13/18 End time 04:58 Total Infusion Time 90 Vancomycin HCl (Vancomycin 1gm) 1 gm in 250 mls @ 167 mls/hr IVPB DAILY ALEKSANDAR; Protocol Piperacillin Sod/Tazobactam Sod (Zosyn 3.375 In Ns 100ml) 100 mls @ 25 mls/hr IVPB Q12 ALEKSANDAR; Protocol Stop: 03/13/18 13:59 Piperacillin Sod/Tazobactam Sod (Zosyn 3.375 In Ns 100ml) 100 mls @ 25 mls/hr IVPB Q6H ALEKSANDAR; Protocol Stop: 03/13/18 08:59 Last Admin: 03/13/18 06:00 Dose: 25 mls/hr eMAR Start Stop Document 03/13/18 06:00 SD (Rec: 03/13/18 07:07 SD [id number]) Intravenous Solution Start Date 03/13/18 Start Time 07:07 Piperacillin Sod/Tazobactam Sod (Zosyn 3.375 In Ns 100ml) 100 mls @ 25 mls/hr IVPB Q8 ALEKSANDAR; Protocol Stop: 03/20/18 14:01 Last Admin: 03/13/18 13:39 Dose: 25 mls/hr eMAR Start Stop Document 03/13/18 13:39 BIR (Rec: 03/13/18 13:40 BIR [id number]) Intravenous Solution Start Date 03/13/18 Start Time 13:40 End Date 03/13/18 End time 15:00 Total Infusion Time 80 <Vj Edwards - Last Filed: 03/13/18 23:22> - PA / BOOKKEEPING CLERK / Resident Statement JAYY has reviewed & agrees with the documentation as recorded. JAYY has examined the patient and agrees with the treatment plan. <Vj Edwards - Last Filed: 03/13/18 23:22> Disposition/Present on Arrival - Present on Arrival Any Indicators Present on Arrival: No History of DVT/PE: No History of Uncontrolled Diabetes: No Urinary Catheter: No History of Decub. Ulcer: No History Surgical Site Infection Following: None - Disposition Have Diagnosis and Disposition been Completed?: Yes Disposition Time: 01:35 Patient Plan: Admission <Chan Douglas - Last Filed: 03/13/18 01:53> <Vj Edwards - Last Filed: 03/13/18 23:22> - Disposition Diagnosis: Cellulitis Disposition: HOSPITALIZED Condition: STABLE
[2018-03-13 01:14] LABS: BASO # 0.05 K/mm3 (0.0-2.0); BASO % 0.3 % (0.0-3.0); EOS # 0.2 (0.0-0.7); EOS % 0.9 % (1.5-5.0); GRAN # 15.36 (1.4-6.5); GRAN % 85.3 % (50.0-68.0); LYMPH # 1.4 (1.2-3.4); LYMPH % 7.8 % (22.0-35.0); MEAN CELL VOLUME 90.1 fl (80.0-105.0); MEAN CORPUSCULAR HEMOGLOBIN 29.9 pg (25.0-35.0); MEAN CORPUSCULAR HGB CONC 33.2 g/dl (31.0-37.0); MEAN PLATELET VOLUME 9.4 fl (7.0-11.0); MONO % 5.7 % (1.0-6.0); RBC 3.14 10^6/uL (3.5-6.1)
[2018-03-13 01:18] LABS: INR 1.15; PARTIAL THROMBOPLASTIN TIME 32.5 Seconds (25.1-36.5); PROTHROMBIN TIME 13.2 SECONDS (9.4-12.5)
[2018-03-13 01:20] LABS: HEMOGLOBIN 9.4 g/dL (14.0-18.0)
[2018-03-13] MEDS ORDERED: Vancomycin 1gm in NS 250ml 1 GM/250 ML BAG IVPB STA (01:25)
[2018-03-13] MEDS ORDERED: cefTRIAXone 1 gm 1 GM/100 ML BAG IVPB STA (01:25)
[2018-03-13 01:27] LABS: ALB/GLOB RATIO 0.9 (1.1-1.8); ALBUMIN 3.7 g/dL (3.0-4.8); ALT/SGPT 39 U/L (7-56); AST/SGOT 48 U/L (17-59); BLOOD UREA NITROGEN 17 mg/dL (7-21); GFR NON-AFRICAN AMERICAN > 60
--- NOTE | 2018-03-13 02:09 | CP.PCM.HP ---
<SeemaClarissaAnkit - Last Filed: 03/13/18 06:04> History of Present Illness - History of Present Illness History of Present Illness: Ankit Cuevas, PGY-1 History and Physical for Hospitalist Service CC: LLE pain HPI: Mr. Renee is a 47 M with PMHx of HSV infection, GERD, depression, and substance abuse who presents with worsening LLE pain. Patient complains of pain in left leg that inhibits his ability to walk. Patient reports this pain began a few weeks ago, but ignored it under the pretense that it would improve on its own. Patient reports open ulcers in the past, but never painful to this extent. Patient denies recent IVDU and manually trying to drain the wound. Patient denies taking anything for the pain and reports resting as the only form of relief. Patient describes the pain as sharp and radiates down into his left foot. Patient denies suicidal and homicidal ideations at this time. Patient denies headaches, blurry vision, chest pain, shortness of breath, abdominal pain, urinary or bowel habit changes, recent travel and sick contacts. PMHx: HSV PSHx: denies Meds: denies All: lactose Social: smoker 20 pack years, denies ETOH and heroin Fam hx: father - CVA, mom - brain CA PCP Dr. Stewart Present on Admission - Present on Admission Any Indicators Present on Admission: No History of DVT/PE: No Review of Systems - Review of Systems Review of Systems: 12 point ROS completed and negative except as described in HPI. Past Patient History - Infectious Disease Hx of Infectious Diseases: None - Past Social History Smoking Status: Unknown If Ever Smoked - CARDIAC Hx Cardiac Disorders: No Hx Hypertension: No - PULMONARY Hx Tuberculosis: No - NEUROLOGICAL HX Cerebrovascular Accident: No Hx Seizures: No - HEENT Hx HEENT Problems: No - RENAL Hx Chronic Kidney Disease: No - ENDOCRINE/METABOLIC Hx Endocrine Disorders: No - HEMATOLOGICAL/ONCOLOGICAL Hx Cancer: No - INTEGUMENTARY Hx Dermatological Problems: Yes Other/Comment: recent Herpes outbreak - MUSCULOSKELETAL/RHEUMATOLOGICAL Hx Musculoskeletal Disorders: No - GASTROINTESTINAL Hx Gastroesophageal Reflux: Yes - GENITOURINARY/GYNECOLOGICAL Hx Sexually Transmitted Disorders: Yes (herpes) - PSYCHIATRIC Hx Depression: Yes Hx Substance Use: Yes (heroin abuse) - SURGICAL HISTORY Hx Surgeries: No - ANESTHESIA Hx Anesthesia: No Meds Allergies/Adverse Reactions: Allergies Allergy/AdvReac Type Severity Reaction Status Date / Time lactose Allergy DIARRHEA Verified 03/13/18 00:29 Physical Exam - Constitutional Appears: Well, Non-toxic, No Acute Distress - Head Exam Head Exam: ATRAUMATIC, NORMOCEPHALIC - Eye Exam Eye Exam: EOMI, Normal appearance - ENT Exam ENT Exam: Mucous Membranes Moist - Neck Exam Neck exam: Positive for: Normal Inspection - Respiratory Exam Respiratory Exam: Clear to Auscultation Bilateral, NORMAL BREATHING PATTERN. absent: Rhonchi, Wheezes, Respiratory Distress - Cardiovascular Exam Cardiovascular Exam: REGULAR RHYTHM, RRR, +S1, +S2 - GI/Abdominal Exam GI & Abdominal Exam: Normal Bowel Sounds, Soft. absent: Distended, Tenderness - Extremities Exam Additional comments: 3 cm tender, erythematous closed indurated ulcer on L anterior doshi. TTP. - Neurological Exam Neurological exam: Alert, Oriented x3 - Psychiatric Exam Psychiatric exam: Anxious - Skin Skin Exam: Dry Results - Labs Result Diagrams: 03/13/18 00:43 03/13/18 00:43 Labs: Laboratory Results - last 24 hr 03/13/18 03/13/18 03/13/18 00:43 00:43 00:43 WBC 18.0 H D RBC 3.14 L Hgb 9.4 L D Hct 28.3 L MCV 90.1 MCH 29.9 MCHC 33.2 RDW 13.0 Plt Count 480 H MPV 9.4 Gran % 85.3 H Lymph % (Auto) 7.8 L [place] % (Auto) 5.7 Eos % (Auto) 0.9 L Baso % (Auto) 0.3 Gran # 15.36 H Lymph # (Auto) 1.4 [place] # (Auto) 1.0 H Eos # (Auto) 0.2 Baso # (Auto) 0.05 PT 13.2 H INR 1.15 APTT 32.5 Sodium 140 Potassium 4.5 Chloride 101 Carbon Dioxide 30 Anion Gap 14 BUN 17 Creatinine 1.0 Est GFR ( Amer) > 60 Est GFR (Non-Af Amer) > 60 Random Glucose 84 Calcium 9.0 Total Bilirubin 0.6 AST 48 ALT 39 Alkaline Phosphatase 60 Total Protein 7.9 Albumin 3.7 Globulin 4.2 Albumin/Globulin Ratio 0.9 L Assessment & Plan - Assessment and Plan (Free Text) Assessment: Assessment: 47 M PMHx HSV and substance abuse who presents with LLE cellulitis. Plan: L anterior doshi abscess Leukocytosis 18, afebrile NPO Elevate affected extremity and warm compresses f/u blood cx UA, UDS f/u AM labs tibia/fibula x-ray ordered due to pain- no acute fracture or bony process appreciated, awaiting final read CXR: no acute disease appreciated, no congestion noted. f/u final read F/u U/S of LLE - will consider surgical consult for possible I&D based on results ID consulted - recs appreciated for further Abx coverage, Ceftriaxone and Vanc in ED, Vanc and Zosyn currently on board Motrin for pain f/u wound culture Normocytic Anemia Hgb 9.4 from 12.6 5 months ago, MCV 90 no vania loss of blood or recent trauma f/u FOBT DVT ppx Lovenox held due to anemia Patient seen, case reviewed, and plan discussed with Dr. Horvath. Ankit Stephenson, PGY-1 <Zhane Horvath - Last Filed: 03/13/18 08:54> Results - Vital Signs Recent Vital Signs: Last Vital Signs Temp 97.9 F 03/13/18 08:17 Pulse 63 03/13/18 08:17 Resp 18 03/13/18 08:18 BP 113/77 03/13/18 08:17 Pulse Ox 96 03/13/18 08:17 - Labs Result Diagrams: 03/13/18 00:43 03/13/18 00:43 Labs: Laboratory Results - last 24 hr 03/13/18 03/13/18 03/13/18 00:43 00:43 00:43 WBC 18.0 H D RBC 3.14 L Hgb 9.4 L D Hct 28.3 L MCV 90.1 MCH 29.9 MCHC 33.2 RDW 13.0 Plt Count 480 H MPV 9.4 Gran % 85.3 H Lymph % (Auto) 7.8 L [place] % (Auto) 5.7 Eos % (Auto) 0.9 L Baso % (Auto) 0.3 Gran # 15.36 H Lymph # (Auto) 1.4 [place] # (Auto) 1.0 H Eos # (Auto) 0.2 Baso # (Auto) 0.05 PT 13.2 H INR 1.15 APTT 32.5 Sodium 140 Potassium 4.5 Chloride 101 Carbon Dioxide 30 Anion Gap 14 BUN 17 Creatinine 1.0 Est GFR ( Amer) > 60 Est GFR (Non-Af Amer) > 60 Random Glucose 84 Calcium 9.0 Total Bilirubin 0.6 AST 48 ALT 39 Alkaline Phosphatase 60 Total Protein 7.9 Albumin 3.7 Globulin 4.2 Albumin/Globulin Ratio 0.9 L Attending/Attestation - Attestation I have personally seen and examined this patient.: Yes I have fully participated in the care of the patient.: Yes I have reviewed all pertinent clinical information: Yes
[2018-03-13] MEDS: Dextrose 5%/0.9% NS 1,000 ML IV SCH ×3 (03:47→22:01)
[2018-03-13] MEDS ORDERED: Piperacillin/Tazobact 3.375 gm 100 ML IVPB SCH ×3 (05:00→14:00)
[2018-03-13] MEDS: Vancomycin 1gm in NS 250ml 1 GM/250 ML BAG IVPB SCH ×2 (09:24→21:59)
--- NOTE | 2018-03-13 09:48 | RAD ---
Date of service: 03/13/2018 PROCEDURE: CHEST RADIOGRAPH, 1 VIEW HISTORY: admission COMPARISON: 12/21/2017 FINDINGS: LUNGS: Clear. PLEURA: No pneumothorax or pleural fluid seen. CARDIOVASCULAR: Normal. OSSEOUS STRUCTURES: No significant abnormalities. VISUALIZED UPPER ABDOMEN: Normal. OTHER FINDINGS: None. IMPRESSION: No active disease.
--- NOTE | 2018-03-13 09:50 | RAD ---
Date of service: 03/13/2018 PROCEDURE: Radiographs of the left tibia and fibula. HISTORY: leg pain COMPARISON: None available. TECHNIQUE: Frontal and lateral views obtained. FINDINGS: BONES: No fracture or destructive lesion. JOINT SPACES: Unremarkable. OTHER FINDINGS: None. IMPRESSION: Unremarkable radiographs of the left tibia and fibula.
--- NOTE | 2018-03-13 09:58 | CP.PCM.CON ---
<Kiya Burrell - Last Filed: 03/13/18 13:32> History of Present Illness - History of Present Illness History of Present Illness: PGY-3 resident ID consult note for Dr. Montalvo Reason for consult: left leg cellulites Patient is a 47 y/o male with PMHx of HSV infection, GERD and depression, [place] ysubstance abuse presenting with left lower extremity pain and ID is consulted for antibiotic regiments. Patient's non cooperative and refused to speak to me, thus most of the history was obtained from the chart. As per chart patient had the left leg pain for weeks, came in yesterday due to worsening in pain. Unable to obtain ROS due to non cooperation from the patient. PMHx: HSV PSHx: unknown FMHx: none Social: smoker 20 pack years, denies ETOH, history of intranasal heroin Allergy: NKDA Review of Systems - Review of Systems Systems not reviewed;Unavailable: Uncooperative Past Patient History - Infectious Disease Hx of Infectious Diseases: None - Past Social History Smoking Status: Current Some Days Smoker Alcohol: None Drugs: Denies Home Situation {Lives}: With Family - CARDIAC Hx Cardiac Disorders: No Hx Hypertension: No - PULMONARY Hx Tuberculosis: No - NEUROLOGICAL HX Cerebrovascular Accident: No Hx Seizures: No - HEENT Hx HEENT Problems: No - RENAL Hx Chronic Kidney Disease: No - ENDOCRINE/METABOLIC Hx Endocrine Disorders: No - HEMATOLOGICAL/ONCOLOGICAL Hx Cancer: No - INTEGUMENTARY Hx Dermatological Problems: Yes Other/Comment: recent Herpes outbreak - MUSCULOSKELETAL/RHEUMATOLOGICAL Hx Falls: No - GASTROINTESTINAL Hx Gastroesophageal Reflux: Yes - GENITOURINARY/GYNECOLOGICAL Hx Sexually Transmitted Disorders: Yes (herpes) - PSYCHIATRIC Hx Depression: Yes Hx Substance Use: Yes (heroin abuse) - SURGICAL HISTORY Hx Surgeries: No - ANESTHESIA Hx Anesthesia: No Meds Allergies/Adverse Reactions: Allergies Allergy/AdvReac Type Severity Reaction Status Date / Time lactose Allergy DIARRHEA Verified 03/13/18 00:29 - Medications Medications: Current Medications Dextrose/Sodium Chloride (Dextrose 5%/0.9% Ns 1000 Ml) 1,000 mls @ 100 mls/hr IV .Q10H ALEKSANDAR Last Admin: 03/13/18 03:47 Dose: 100 mls/hr Vancomycin HCl (Vancomycin 1gm) 1 gm in 250 mls @ 167 mls/hr IVPB Q12 ALEKSANDAR; Protocol Last Admin: 03/13/18 09:24 Dose: 167 mls/hr Piperacillin Sod/Tazobactam Sod (Zosyn 3.375 In Ns 100ml) 100 mls @ 25 mls/hr IVPB Q8 ALEKSANDAR; Protocol Stop: 03/20/18 14:01 Ibuprofen (Motrin Tab) 600 mg PO Q6H PRN PRN Reason: Pain, moderate (4-7) Physical Exam - Constitutional Appears: No Acute Distress, Older Than Stated Age - Skin Additional comments: Focused exam: Left lower extremity with 3 areas of abscess, 2 fluctuant, 1 opened draining purulent discharge, + erythema and skin discoloration, warm to touch. Results - Vital Signs Recent Vital Signs: Last Vital Signs Temp 97.9 F 03/13/18 08:17 Pulse 63 03/13/18 08:17 Resp 18 03/13/18 08:18 BP 113/77 03/13/18 08:17 Pulse Ox 96 03/13/18 08:17 - Labs Result Diagrams: 03/13/18 00:43 03/13/18 00:43 Labs: Laboratory Results - last 24 hr 03/13/18 03/13/18 03/13/18 00:43 00:43 00:43 WBC 18.0 H D RBC 3.14 L Hgb 9.4 L D Hct 28.3 L MCV 90.1 MCH 29.9 MCHC 33.2 RDW 13.0 Plt Count 480 H MPV 9.4 Gran % 85.3 H Lymph % (Auto) 7.8 L [place] % (Auto) 5.7 Eos % (Auto) 0.9 L Baso % (Auto) 0.3 Gran # 15.36 H Lymph # (Auto) 1.4 [place] # (Auto) 1.0 H Eos # (Auto) 0.2 Baso # (Auto) 0.05 PT 13.2 H INR 1.15 APTT 32.5 Sodium 140 Potassium 4.5 Chloride 101 Carbon Dioxide 30 Anion Gap 14 BUN 17 Creatinine 1.0 Est GFR ( Amer) > 60 Est GFR (Non-Af Amer) > 60 Random Glucose 84 Calcium 9.0 Total Bilirubin 0.6 AST 48 ALT 39 Alkaline Phosphatase 60 Total Protein 7.9 Albumin 3.7 Globulin 4.2 Albumin/Globulin Ratio 0.9 L Assessment & Plan - Assessment and Plan (Free Text) Assessment: Patient is a 47 y/o with Cellulites and abscess of the left lower extremities h/o HSV infection GERD depression, polysubstance abuse Plan: Patient with leukocytosis on presentation, afebrile. Tib/fib extremity x-ray with no acute findings. Left extremity ultrasound ordered to evaluate for abscess/fluid collection. Blood culture and wound culture ordered. Patient might need I&D, consider surgery consult. Obtain wound culture. Continue with zosyn and vanco pending cultures. Patient seen, examined and case discussed with Dr. Montalvo. - Date & Time Date: 03/13/18 Time: 13:00 <Alfredo Montalvo - Last Filed: 03/13/18 21:58> Meds - Medications Medications: Current Medications Dextrose/Sodium Chloride (Dextrose 5%/0.9% Ns 1000 Ml) 1,000 mls @ 100 mls/hr IV .Q10H ALEKSANDAR Last Admin: 03/13/18 13:39 Dose: 100 mls/hr Vancomycin HCl (Vancomycin 1gm) 1 gm in 250 mls @ 167 mls/hr IVPB Q12 ALEKSANDAR; Protocol Last Admin: 03/13/18 09:24 Dose: 167 mls/hr Piperacillin Sod/Tazobactam Sod (Zosyn 3.375 In Ns 100ml) 100 mls @ 25 mls/hr IVPB Q8 ALEKSANDAR; Protocol Stop: 03/20/18 14:01 Ibuprofen (Motrin Tab) 600 mg PO Q6H PRN PRN Reason: Pain, moderate (4-7) Results - Vital Signs Recent Vital Signs: Last Vital Signs Temp 98.4 F 03/13/18 16:38 Pulse 67 03/13/18 16:38 Resp 19 03/13/18 16:38 BP 119/90 03/13/18 16:38 Pulse Ox 100 03/13/18 16:38 - Labs Result Diagrams: 03/13/18 00:43 03/13/18 00:43 Labs: Laboratory Results - last 24 hr 03/13/18 03/13/18 03/13/18 00:43 00:43 00:43 WBC 18.0 H D RBC 3.14 L Hgb 9.4 L D Hct 28.3 L MCV 90.1 MCH 29.9 MCHC 33.2 RDW 13.0 Plt Count 480 H MPV 9.4 Gran % 85.3 H Lymph % (Auto) 7.8 L [place] % (Auto) 5.7 Eos % (Auto) 0.9 L Baso % (Auto) 0.3 Gran # 15.36 H Lymph # (Auto) 1.4 [place] # (Auto) 1.0 H Eos # (Auto) 0.2 Baso # (Auto) 0.05 PT 13.2 H INR 1.15 APTT 32.5 Sodium 140 Potassium 4.5 Chloride 101 Carbon Dioxide 30 Anion Gap 14 BUN 17 Creatinine 1.0 Est GFR ( Amer) > 60 Est GFR (Non-Af Amer) > 60 Random Glucose 84 Calcium 9.0 Total Bilirubin 0.6 AST 48 ALT 39 Alkaline Phosphatase 60 Total Protein 7.9 Albumin 3.7 Globulin 4.2 Albumin/Globulin Ratio 0.9 L Assessment & Plan - Assessment and Plan (Free Text) Plan: Infectious Diseases Attending Physician Addendum Patient seen, examined, discussed with medical reception specialist. I have reviewed the pertinent clinical information. I agree with the above findings, assessment and plan and in addition, we have started the patient on Vancomycin and Zosyn for left leg skin and skin structure infection with possible abscess. Follow up blood and wound cx, follow up plan of surgery for I and D. HIV status was negative in December 2017.
[2018-03-13] MEDS ORDERED: Enoxaparin 40 mg Syringe SC SCH (10:00)
[2018-03-13] MEDS ORDERED: Vancomycin 1gm in NS 250ml 1 GM/250 ML BAG IVPB SCH (10:00)
[2018-03-13] MEDS ORDERED: Lidocaine 1% Inj (20ml) IJ STA (15:37)
--- NOTE | 2018-03-13 16:29 | CP.PCM.CON ---
History of Present Illness - History of Present Illness History of Present Illness: 47M presented to [facility] [place] ED with complaints of left lower extremity pain. General Surgery consulted for left lower leg (anterior) abscess. Patient refused bedside incision and drainage procedure. Risks of lack of intervention were explained to the patient. However, he refused to have local anesthetic injected. Stated he did not want I&D to be done. PMHx: HSV PSHx: denies Meds: denies All: lactose Social: smoker 20 pack years, denies ETOH, IVDU Fam hx: father - CVA, mom - brain CA Review of Systems - Review of Systems Systems not reviewed;Unavailable: Uncooperative Past Patient History - Infectious Disease Hx of Infectious Diseases: None - Past Social History Smoking Status: Current Some Days Smoker Alcohol: None Drugs: Denies Home Situation {Lives}: With Family - CARDIAC Hx Cardiac Disorders: No Hx Hypertension: No - PULMONARY Hx Tuberculosis: No - NEUROLOGICAL HX Cerebrovascular Accident: No Hx Seizures: No - HEENT Hx HEENT Problems: No - RENAL Hx Chronic Kidney Disease: No - ENDOCRINE/METABOLIC Hx Endocrine Disorders: No - HEMATOLOGICAL/ONCOLOGICAL Hx Cancer: No - INTEGUMENTARY Hx Dermatological Problems: Yes Other/Comment: recent Herpes outbreak - MUSCULOSKELETAL/RHEUMATOLOGICAL Hx Falls: No - GASTROINTESTINAL Hx Gastroesophageal Reflux: Yes - GENITOURINARY/GYNECOLOGICAL Hx Sexually Transmitted Disorders: Yes (herpes) - PSYCHIATRIC Hx Depression: Yes Hx Substance Use: Yes (heroin abuse) - SURGICAL HISTORY Hx Surgeries: No - ANESTHESIA Hx Anesthesia: No Meds Allergies/Adverse Reactions: Allergies Allergy/AdvReac Type Severity Reaction Status Date / Time lactose Allergy DIARRHEA Verified 03/13/18 00:29 - Medications Medications: Current Medications Dextrose/Sodium Chloride (Dextrose 5%/0.9% Ns 1000 Ml) 1,000 mls @ 100 mls/hr IV .Q10H ALEKSANDAR Last Admin: 03/13/18 13:39 Dose: 100 mls/hr Vancomycin HCl (Vancomycin 1gm) 1 gm in 250 mls @ 167 mls/hr IVPB Q12 ALEKSANDAR; Protocol Last Admin: 03/13/18 09:24 Dose: 167 mls/hr Piperacillin Sod/Tazobactam Sod (Zosyn 3.375 In Ns 100ml) 100 mls @ 25 mls/hr IVPB Q8 ALEKSANDAR; Protocol Stop: 03/20/18 14:01 Ibuprofen (Motrin Tab) 600 mg PO Q6H PRN PRN Reason: Pain, moderate (4-7) Physical Exam - Constitutional Appears: Non-toxic - Head Exam Head Exam: NORMOCEPHALIC - Eye Exam Eye Exam: EOMI, Normal appearance - ENT Exam ENT Exam: Mucous Membranes Moist - Respiratory Exam Respiratory Exam: NORMAL BREATHING PATTERN - Cardiovascular Exam Cardiovascular Exam: +S1, +S2 - GI/Abdominal Exam GI & Abdominal Exam: Soft - Extremities Exam Additional comments: fluctuant skin along anterior aspect of left lower extremity - Neurological Exam Neurological exam: Alert, Oriented x3 - Psychiatric Exam Psychiatric exam: Normal Mood - Skin Skin Exam: Dry, Intact, Warm Results - Vital Signs Recent Vital Signs: Last Vital Signs Temp 97.9 F 03/13/18 08:17 Pulse 63 03/13/18 08:17 Resp 18 03/13/18 08:18 BP 113/77 03/13/18 08:17 Pulse Ox 96 03/13/18 08:17 - Labs Result Diagrams: 03/13/18 00:43 03/13/18 00:43 Labs: Laboratory Results - last 24 hr 03/13/18 03/13/18 03/13/18 00:43 00:43 00:43 WBC 18.0 H D RBC 3.14 L Hgb 9.4 L D Hct 28.3 L MCV 90.1 MCH 29.9 MCHC 33.2 RDW 13.0 Plt Count 480 H MPV 9.4 Gran % 85.3 H Lymph % (Auto) 7.8 L Craig % (Auto) 5.7 Eos % (Auto) 0.9 L Baso % (Auto) 0.3 Gran # 15.36 H Lymph # (Auto) 1.4 Craig # (Auto) 1.0 H Eos # (Auto) 0.2 Baso # (Auto) 0.05 PT 13.2 H INR 1.15 APTT 32.5 Sodium 140 Potassium 4.5 Chloride 101 Carbon Dioxide 30 Anion Gap 14 BUN 17 Creatinine 1.0 Est GFR ( Amer) > 60 Est GFR (Non-Af Amer) > 60 Random Glucose 84 Calcium 9.0 Total Bilirubin 0.6 AST 48 ALT 39 Alkaline Phosphatase 60 Total Protein 7.9 Albumin 3.7 Globulin 4.2 Albumin/Globulin Ratio 0.9 L Assessment & Plan - Assessment and Plan (Free Text) Assessment: 47M with left anterior lower leg abscess Plan: Patient refusing surgical intervention at this present time Patient being extremely uncooperative At this time recommend applying warm compresses to affected area with hopes it will spontaneously drain Will continue to monitor and follow C/w ABx as per ID Further recs per Dr. Timothy Man PGY3
[2018-03-13 16:41] VITALS: RESP 19; O2SAT 100
[2018-03-13] MEDS: Piperacillin/Tazobact 3.375 gm 100 ML IVPB SCH (22:00)
[2018-03-14] MEDS: Piperacillin/Tazobact 3.375 gm 100 ML IVPB SCH ×2 (05:19→13:25)
[2018-03-14 06:37] LABS: BASO # 0.03 K/mm3 (0.0-2.0); BASO % 0.3 % (0.0-3.0); EOS # 0.2 (0.0-0.7); EOS % 1.9 % (1.5-5.0); GRAN # 8.52 (1.4-6.5); GRAN % 82.3 % (50.0-68.0); HEMOGLOBIN 9.2 g/dL (14.0-18.0); LYMPH % 9.9 % (22.0-35.0); MEAN CELL VOLUME 88.4 fl (80.0-105.0); MEAN CORPUSCULAR HEMOGLOBIN 28.8 pg (25.0-35.0); MEAN CORPUSCULAR HGB CONC 32.6 g/dl (31.0-37.0); MEAN PLATELET VOLUME 9.6 fl (7.0-11.0); MONO # 0.6 (0.1-0.6); MONO % 5.6 % (1.0-6.0); RBC 3.19 10^6/uL (3.5-6.1); RED CELL DISTRIBUTION WIDTH 12.7 % (11.5-14.5); WHITE BLOOD COUNT 10.4 10^3/ul (4.5-11.0)
[2018-03-14 07:14] LABS: BLOOD UREA NITROGEN 14 mg/dL (7-21); CALCIUM 8.6 mg/dL (8.4-10.5); GFR NON-AFRICAN AMERICAN > 60
[2018-03-14 07:15] LABS: ALB/GLOB RATIO 0.8 (1.1-1.8); ALT/SGPT 28 U/L (7-56); AST/SGOT 44 U/L (17-59)
[2018-03-14 08:41] VITALS: BP 152/77; PULSE 61; TEMP 98.1
--- NOTE | 2018-03-14 09:26 | CP.PCM.PN ---
Subjective - Date & Time of Evaluation Date of Evaluation: 03/14/18 Time of Evaluation: 09:24 - Subjective Subjective: General Surgery progress note for Dr. Aguirre Patient seen and examined at bedside. No acute events overnight. Patient is still refusing bedside incision and drainage procedure. Risks of lack of intervention were explained to the patient. Patient denies fever. Patient refused to answer further questioning. Objective - Vital Signs/Intake and Output Vital Signs (last 24 hours): Temp Pulse Resp BP Pulse Ox 98.1 F 61 19 152/77 H 100 03/14/18 08:40 03/14/18 08:40 03/14/18 08:40 03/14/18 08:40 03/14/18 08:40 - Medications Medications: Current Medications Dextrose/Sodium Chloride (Dextrose 5%/0.9% Ns 1000 Ml) 1,000 mls @ 100 mls/hr IV .Q10H ALEKSANDAR Last Admin: 03/13/18 22:01 Dose: Not Given Vancomycin HCl (Vancomycin 1gm) 1 gm in 250 mls @ 167 mls/hr IVPB Q12 ALEKSANDAR; Protocol Last Admin: 03/13/18 21:59 Dose: Not Given Piperacillin Sod/Tazobactam Sod (Zosyn 3.375 In Ns 100ml) 100 mls @ 25 mls/hr IVPB Q8 ALEKSANDAR; Protocol Stop: 03/20/18 14:01 Last Admin: 03/14/18 05:19 Dose: Not Given Ibuprofen (Motrin Tab) 600 mg PO Q6H PRN PRN Reason: Pain, moderate (4-7) - Labs Labs: 03/14/18 05:30 03/14/18 05:30 PT 13.2 SECONDS (9.4-12.5) H 03/13/18 00:43 INR 1.15 03/13/18 00:43 APTT 32.5 Seconds (25.1-36.5) 03/13/18 00:43 - Constitutional Appears: Well, Non-toxic, No Acute Distress - Head Exam Head Exam: ATRAUMATIC, NORMOCEPHALIC - Eye Exam Eye Exam: Normal appearance - Respiratory Exam Respiratory Exam: NORMAL BREATHING PATTERN. absent: Respiratory Distress - Cardiovascular Exam Cardiovascular Exam: RRR. absent: Tachycardia - GI/Abdominal Exam GI & Abdominal Exam: Soft. absent: Guarding, Tenderness - Extremities Exam Additional comments: fluctuant skin along anterior aspect of left lower extremity - Neurological Exam Neurological Exam: Alert, Awake, Oriented x3 - Psychiatric Exam Psychiatric exam: Normal Affect, Normal Mood - Skin Skin Exam: Dry, Intact, Normal Color, Warm Assessment and Plan - Assessment and Plan (Free Text) Assessment: Patient is a 47 year old male with left anterior lower leg abscess. Plan: - Patient refusing surgical intervention at this present time, patient being extremely uncooperative - Continue antibiotics as per ID - Continue to apply warm compresses to affected area Case discussed with Dr. Timothy Wise DO PGY-1
[2018-03-14] MEDS ORDERED: Lactated Ringer's 1,000 ML IV SCH (10:00)
--- NOTE | 2018-03-14 11:54 | CP.PCM.PN ---
<Kiya Burrell - Last Filed: 03/14/18 14:03> Subjective - Date & Time of Evaluation Date of Evaluation: 03/14/18 Time of Evaluation: 11:10 - Subjective Subjective: PGY-3 ID progress note for Dr. Montalvo As per nurse, patient refused IV antibiotics last night, refused warm compress. Patient is extremely non cooperative, and refused to answer any questions. Objective - Vital Signs/Intake and Output Vital Signs (last 24 hours): Temp Pulse Resp BP Pulse Ox 98.1 F 61 19 152/77 H 100 03/14/18 08:40 03/14/18 08:40 03/14/18 08:40 03/14/18 08:40 03/14/18 08:40 - Medications Medications: Current Medications Vancomycin HCl (Vancomycin 1gm) 1 gm in 250 mls @ 167 mls/hr IVPB Q12 ALEKSANDAR; Protocol Last Admin: 03/13/18 21:59 Dose: Not Given Piperacillin Sod/Tazobactam Sod (Zosyn 3.375 In Ns 100ml) 100 mls @ 25 mls/hr IVPB Q8 ALEKSANDAR; Protocol Stop: 03/20/18 14:01 Last Admin: 03/14/18 05:19 Dose: Not Given Lactated Ringer's (Lactated Ringer's) 1,000 mls @ 100 mls/hr IV .Q10H ALEKSANDAR Ibuprofen (Motrin Tab) 600 mg PO Q6H PRN PRN Reason: Pain, moderate (4-7) - Labs Labs: 03/14/18 05:30 03/14/18 05:30 PT 13.2 SECONDS (9.4-12.5) H 03/13/18 00:43 INR 1.15 03/13/18 00:43 APTT 32.5 Seconds (25.1-36.5) 03/13/18 00:43 - Constitutional Appears: No Acute Distress, Unkempt - Head Exam Head Exam: NORMAL INSPECTION - Skin Additional comments: Focused exam: Left leg: dorsal aspect with large tense, abscess like collection, with surrounding edema and erythema, hot to touch. Assessment and Plan - Assessment and Plan (Free Text) Assessment: Patient is a 47 y/o with: Cellulites and abscess of the left lower extremities h/o HSV infection GERD depression, polysubstance abuse Plan: Leukocytosis resolved, no fever, hemodynamicaly stable. Blood cultures with no growth. Patient will need to have I&D of the abscess. Continue with zosyn and vanco day#2 pending. Will continue to follow. Patient seen, examined and case discussed with Dr. Montalvo. <Alfredo Montalvo - Last Filed: 03/14/18 21:19> Objective - Vital Signs/Intake and Output Vital Signs (last 24 hours): Temp Pulse Resp BP Pulse Ox 98.1 F 61 19 152/77 H 100 03/14/18 08:40 03/14/18 08:40 03/14/18 08:40 03/14/18 08:40 03/14/18 08:40 - Labs Labs: 03/14/18 05:30 03/14/18 05:30 PT 13.2 SECONDS (9.4-12.5) H 03/13/18 00:43 INR 1.15 03/13/18 00:43 APTT 32.5 Seconds (25.1-36.5) 03/13/18 00:43 Assessment and Plan - Assessment and Plan (Free Text) Plan: Infectious Diseases Attending Physician Addendum Patient seen, examined, discussed with biomedical analytical scientist. I have reviewed the pertinent clinical information. I agree with the above findings, assessment and plan and in addition, continue Vancomycin and Zosyn for left leg skin and skin structure infection with possible abscess. Patient needs I and D, but patient is refusing - we strongly recommend I and D and follow up abscess cultures.HIV status was negative in December 2017.
[2018-03-14] MEDS: Vancomycin 1gm in NS 250ml 1 GM/250 ML BAG IVPB SCH (13:22)
--- NOTE | 2018-03-14 17:22 | US ---
Date of service: 03/14/2018 PROCEDURE: Extremity nonvascular ultrasound HISTORY: left lower extremity ? abscess vs fluid collection COMPARISON: March 13, 2018 left tibia and fibula. TECHNIQUE: Standard protocol for this study/examination. FINDINGS: Complex fluid collection above the ankle, anatomic area of interest. The collection measures 2.4 x 1 x 4.1 cm. Fluid and debris identified within the collection. Hypervascular rim and skin edema/cellulitis. IMPRESSION: Complex fluid collection likely infectious/inflammatory with drainable component.
--- NOTE | 2018-03-14 18:21 | CP.PCM.PN ---
Subjective - Date & Time of Evaluation Date of Evaluation: 03/14/18 Time of Evaluation: 17:45 - Subjective Subjective: INTERNAL MEDICINE PROGRESS NOTE FOR DR. NELLY Hernandez D.O. PGY-1 Resident paged from nursing staff in regards to patient requesting to sign out AMA. Upon arrival to patient's room, patient was not present. Nursing staff notified me that patient had left immediately and refused medical evaluation. Pt informed the nursing staff that he didn't want to wait for resident before leaving. Explanation of risks, benefits, alternatives to treatment and medical examination were not able to be performed as patient had eloped. Objective - Vital Signs/Intake and Output Vital Signs (last 24 hours): Temp Pulse Resp BP Pulse Ox 98.1 F 61 19 152/77 H 100 03/14/18 08:40 03/14/18 08:40 03/14/18 08:40 03/14/18 08:40 03/14/18 08:40 - Labs Labs: 03/14/18 05:30 03/14/18 05:30 PT 13.2 SECONDS (9.4-12.5) H 03/13/18 00:43 INR 1.15 03/13/18 00:43 APTT 32.5 Seconds (25.1-36.5) 03/13/18 00:43
--- NOTE | 2018-03-14 20:02 | CP.PCM.DIS ---
Provider - Provider Date of Admission: 03/13/18 01:41 Attending physician: Remedios Post MD Primary care physician: Noah Stewart MD Consults: ID: Dr. Guardado Surgery: Dr. Aguirre Time Spent in preparation of Discharge (in minutes): 45 Hospital Course - Lab Results Lab Results: Micro Results 03/13/18 00:50 Blood-Venous Blood Culture - Preliminary NO GROWTH AFTER 24 HOURS 03/13/18 00:29 Blood-Venous Blood Culture - Preliminary NO GROWTH AFTER 24 HOURS Most Recent Lab Values WBC 10.4 10^3/ul (4.5-11.0) D 03/14/18 05:30 RBC 3.19 10^6/uL (3.5-6.1) L 03/14/18 05:30 Hgb 9.2 g/dL (14.0-18.0) L 03/14/18 05:30 Hct 28.2 % (42.0-52.0) L 03/14/18 05:30 MCV 88.4 fl (80.0-105.0) 03/14/18 05:30 MCH 28.8 pg (25.0-35.0) 03/14/18 05:30 MCHC 32.6 g/dl (31.0-37.0) 03/14/18 05:30 RDW 12.7 % (11.5-14.5) 03/14/18 05:30 Plt Count 485 10^3/uL (120.0-450.0) H 03/14/18 05:30 MPV 9.6 fl (7.0-11.0) 03/14/18 05:30 Gran % 82.3 % (50.0-68.0) H 03/14/18 05:30 Lymph % (Auto) 9.9 % (22.0-35.0) L 03/14/18 05:30 Stanley % (Auto) 5.6 % (1.0-6.0) 03/14/18 05:30 Eos % (Auto) 1.9 % (1.5-5.0) 03/14/18 05:30 Baso % (Auto) 0.3 % (0.0-3.0) 03/14/18 05:30 Gran # 8.52 (1.4-6.5) H 03/14/18 05:30 Lymph # (Auto) 1.0 (1.2-3.4) L 03/14/18 05:30 Stanley # (Auto) 0.6 (0.1-0.6) 03/14/18 05:30 Eos # (Auto) 0.2 (0.0-0.7) 03/14/18 05:30 Baso # (Auto) 0.03 K/mm3 (0.0-2.0) 03/14/18 05:30 PT 13.2 SECONDS (9.4-12.5) H 03/13/18 00:43 INR 1.15 03/13/18 00:43 APTT 32.5 Seconds (25.1-36.5) 03/13/18 00:43 Sodium 136 mmol/L (132-148) 03/14/18 05:30 Potassium 4.3 mmol/L (3.6-5.0) 03/14/18 05:30 Chloride 103 mmol/L (98-107) 03/14/18 05:30 Carbon Dioxide 29 mmol/L (21-33) 03/14/18 05:30 Anion Gap 9 (10-20) L 03/14/18 05:30 BUN 14 mg/dL (7-21) 03/14/18 05:30 Creatinine 0.9 mg/dl (0.8-1.5) 03/14/18 05:30 Est GFR ( Amer) > 60 03/14/18 05:30 Est GFR (Non-Af Amer) > 60 03/14/18 05:30 Random Glucose 90 mg/dL (70-110) 03/14/18 05:30 Calcium 8.6 mg/dL (8.4-10.5) 03/14/18 05:30 Total Bilirubin 0.3 mg/dL (0.2-1.3) 03/14/18 05:30 AST 44 U/L (17-59) 03/14/18 05:30 ALT 28 U/L (7-56) 03/14/18 05:30 Alkaline Phosphatase 51 U/L (38-126) 03/14/18 05:30 Total Protein 6.9 g/dL (5.8-8.3) 03/14/18 05:30 Albumin 3.0 g/dL (3.0-4.8) 03/14/18 05:30 Globulin 3.9 gm/dL 03/14/18 05:30 Albumin/Globulin Ratio 0.8 (1.1-1.8) L 03/14/18 05:30 - Hospital Course Hospital Course: Mr. Renee is a 47 M with PMHx of HSV infection, GERD, depression, and substance abuse who presented with worsening LLE pain. Patient complained of pain in left leg that inhibits his ability to walk. Patient reported this pain began a few weeks ago, but ignored it under the pretense that it would improve on its own. Patient reported open ulcers in the past, but never painful to this extent. Patient denies recent IVDU and manually trying to drain the wound. Patient denies taking anything for the pain and reports resting as the only form of relief. Patient described the pain as sharp and radiates down into his left foot. Patient denied suicidal and homicidal ideations at thetime. Pt was admitted for cellulitis/abscess of the LLE. Pt was intially treated with IV vancomycin. Throughout hospital stay, per nursing staff and interviews, patient had been denying treatment with IV fluids, hep block and IV antibiotics. Pt was not responsive to interview questions from several members of ID team, Surgery and Medicine team. Pt was last given a dose of IV vancomycin on 02/11/18. Pt was advised numerous times by several physicians from ID team, Surgery team and Medicine team throughout the hospital course that the best course of action to treat his abscess was I&D of the abscess of his LLE. Pt had refused the procedure multiple times. Pt was scheduled for OR for I&D as he had agreed at one point to undergo procedure, however he refused bloodwork for type and cross. On 02/12/18, I was paged by nursing staff and informed that patient was requesting to leave the hospital against medical advice. I immediately responded to the page and went to evaluate the patient. Upon arrival to patient's room, patient was no longer present. Nursing staff notified me that patient had left and refused medical evaluation. Pt informed the nursing staff that he didn't want to wait for resident before leaving. Explanation of risks, benefits, alternatives to treatment and medical examination were not able to be performed as patient had eloped. Instructions for follow-up instructions were not able to be given as patient had left against medical advice. Discharge Plan - Follow Up Plan Condition: STABLE Disposition: HOME/ ROUTINE Instructions: Cellulitis (ED) Referrals: Noah Stewart MD [Primary Care Provider] - Addendum Addendum: 03/15/18 17:18 Physical exam was not able to be performed as patient had eloped
== END 2018-03-14 17:36 | disposition left against medical advice (07) | DRG 277 ==
LOC: ED 00:17 → ERH 01:41 → 3RNO 03:51
PROVIDERS: ADMIT Internal Medicine; ATTEND Internal Medicine
DX: L02.416 Cutaneous abscess of left lower limb (principal); F11.10 Opioid abuse, uncomplicated; L03.116 Cellulitis of left lower limb; F17.210 Nicotine dependence, cigarettes, uncomplicated; F32.9 Major depressive disorder, single episode, unspecified; K21.9 Gastro-esophageal reflux disease without esophagitis; D64.9 Anemia, unspecified; Z53.21 Procedure and treatment not carried out due to patient leaving prior to being seen by health care provider; Z86.19 Personal history of other infectious and parasitic diseases; Z82.3 Family history of stroke; Z80.8 Family history of malignant neoplasm of other organs or systems